=== PATIENT | female | born 1930 | race Caucasian/White ===

== ENCOUNTER 2017-01-04 20:59 | Inpatient (IN) | payer MEDICARE, OTHER, MEDICAID ==
[2017-01-04] MEDS ORDERED: Acetaminophen 500 MG Tab ONE (21:13)
[2017-01-04] MEDS ORDERED: Albuterol/Ipratropium 3.0-0.5 MG/3 ML Neb Soln ONE (21:13)
[2017-01-04] MEDS ORDERED: Albuterol/Ipratropium 3.0-0.5 MG/3 ML Neb Soln NEB ONE (21:18)
[2017-01-04] MEDS ORDERED: Acetaminophen 500 MG Tab PO ONE (21:19)
[2017-01-04 21:52] LABS: CHLORIDE,CL 96 mmol/L (98-115); SODIUM,NA 137 mmol/L (136-145)
--- NOTE | 2017-01-04 22:00 | EDM.PDOC ---
Addendum entered and electronically signed by Jens Marquez PA 01/05/17 09:03 : please use ER note as admission H and P Original Note: ED HISTORY OF PRESENT ILLNESS - General Chief Complaint: Respiratory Problem Stated Complaint: SHORTNESS OF BREATH Time Seen by Provider: 01/04/17 21:30 Source of Information: Reports: Patient, EMS, Family, residential records History Limitations: Reports: No limitations - History of Present Illness INITIAL COMMENTS - FREE TEXT/NARRATIVE: 86 YO WF presents to ER with fever, productive cough and shortness of breath which worsened today. Pt was hospitalized approximately 2 weeks ago with similar symptoms and treated for pneumonia and congestive heart failure. Pt was complaining of shortness of breath while at the half-way and was found to have SaO2 of 88% on her usual 3L of O2. Pt was given a duoneb treatment but O2 sat didn't improve prompting half-way to send patient to ER for further evaluation and treatment. Timing/Duration: Reports: Day(s): (1) Severity: mild Location, General: Reports: chest Improves with: Reports: Rest Worsens with: Reports: Breathing Context, General: Reports: Activity Associated Symptoms (General): Reports: cough w sputum, fever/chills, shortness of breath. Denies: chest pain - Related Data Allergies/ADRs: Allergies Allergy/AdvReac Type Severity Reaction Status Date / Time hydrocodone Allergy Severe Nausea and Verified 01/04/17 21:34 Vomiting levofloxacin [From Levaquin] Allergy Rash Verified 01/04/17 21:34 morphine Allergy Nausea and Verified 01/04/17 21:34 Vomiting Home Meds: Home Meds Docusate Sodium [Colace] 100 mg PO DAILY 11/20/14 [History] Lutein/Minerals/Vit A,C & E [Ocuvite] 1 tab PO BID 11/20/14 [History] Multivitamin [Daily Vitamin] 1 each PO DAILY 11/20/14 [History] Nitroglycerin [Nitrostat] 0.4 mg SL ASDIRECTED PRN 11/20/14 [History] Simvastatin 20 mg PO BEDTIME 11/20/14 [History] Warfarin Sodium 2 mg PO SUTUTHSA 11/20/14 [History] Furosemide [Lasix] 40 mg PO BID 11/04/15 [History] Aspirin [Adult Low Dose Aspirin EC] 81 mg PO DAILY 04/13/16 [History] Timolol Maleate 1 drop EYEBOTH DAILY 04/13/16 [History] Acetaminophen [Tylenol] 650 mg PO Q6H PRN 11/30/16 [History] Albuterol/Ipratropium [DuoNeb 3.0-0.5 MG/3 ML] 3 ml INH Q4H PRN 11/30/16 [ History] Calcium Carbonate [Tums] 2 tab PO Q6H PRN 11/30/16 [History] Docusate Sodium [Colace] 200 mg PO BEDTIME 11/30/16 [History] Polyethylene Glycol 3350 [MiraLAX] 1 pkt PO DAILY PRN 11/30/16 [History] Warfarin [Coumadin] 1 mg PO MOWEFR 11/30/16 [History] Past Medical History HEENT History: Reports: Glaucoma, Other (see below) 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 Cardiovascular History: Reports: Heart Failure, Pacemaker, SOB on exertion, Stents Respiratory History: Reports: SOB, Other (see below) Other Respiratory History: home 02 Gastrointestinal History: Reports: GERD Genitourinary History: Reports: None Musculoskeletal History: Reports: Arthritis, Gout Neurological History: Reports: Head trauma Psychiatric History: Reports: Anxiety - Infectious Disease History Infectious Disease History: Reports: Chicken pox, Measles, Mumps, Pertussis ( whooping cough), Rubella - Past Surgical History Head Surgeries/Procedures: Reports: None HEENT Surgical History: Reports: None Cardiovascular Surgical History: Reports: Coronary artery stent, Pacer Respiratory Surgical History: Reports: None GI Surgical History: Reports: Appendectomy, Cholecystectomy Female Surgical History: Reports: Hysterectomy Neurological Surgical History: Reports: None Musculoskeletal Surgical History: Reports: None Social & Family History - Family History Family Medical History: Noncontributory - Tobacco Use Smoking Status *Q: Never Smoker Second Hand Smoke Exposure: No - Caffeine Use Caffeine Use: Reports: Coffee, Soda - Alcohol Use Days Per Week of Alcohol Use: 0 - Recreational Drug Use Recreational Drug Use: No - Living Situation & Occupation Living situation: Reports: Occupation: retired ED ROS GENERAL - Review of Systems Review Of Systems: See Below Constitutional: Reports: fever, chills HEENT: Reports: No symptoms Respiratory: Reports: shortness of breath, cough, sputum. Denies: hemoptysis Cardiovascular: Reports: No symptoms Endocrine: Reports: no symptoms GI/Abdominal: Reports: No symptoms : Reports: no symptoms Musculoskeletal: Reports: no symptoms Skin: Reports: no symptoms Neurological: Reports: no symptoms Psychiatric: Reports: No symptoms Hematologic/Lymphatic: Reports: no symptoms Immunologic: Reports: no symptoms ED EXAM, GENERAL - Physical Exam Exam: See Below Exam Limited By: No limitations General Appearance: alert, WD/WN, no apparent distress Ears: normal external exam, normal canal, hearing grossly normal, normal TMs Nose: normal inspection, normal mucosa, no blood Throat/Mouth: Normal inspection, Normal lips, Normal teeth, Normal gums, Normal oropharynx, Normal voice, No airway compromise Head: atraumatic, normocephalic Neck: normal inspection, supple, non-tender, full range of motion Respiratory/Chest: no respiratory distress, no accessory muscle use, crackles. No: lungs clear Cardiovascular: normal peripheral pulses, no edema, no gallop, no murmur, no rub , irregularly irregular GI/Abdominal: normal bowel sounds, soft, non tender, no organomegaly, no distention, no abnormal bruit, no mass Back Exam: normal inspection, full range of motion, NT Extremities: normal inspection, normal range of motion, non-tender, normal capillary refill, no pedal edema Neurological: alert, oriented, CN II-XII intact, normal cognition, normal gait, normal reflexes, no motor/sensory deficits Psychiatric: normal affect, depressed mood Skin Exam: Warm, Dry, Intact, Normal color, No rash Lymphatic: no adenopathy Course - Vital Signs Last Recorded V/S: Last Vital Signs Temp 39.3 C H 01/04/17 21:26 Pulse 75 01/04/17 21:26 Resp 28 H 01/04/17 21:26 BP 132/59 L 01/04/17 21:26 Pulse Ox 89 L 01/04/17 21:26 - Orders/Labs/Meds Orders: Active Orders 24 hr Category Date Time Status RT Aerosol Therapy [RC] ASDIRECTED Care 01/04/17 21:19 Active Chest 2V [CR] Stat Exams 01/04/17 21:20 Taken CULTURE BLOOD [BC] Stat Lab 01/04/17 21:10 Received CULTURE BLOOD [BC] Stat Lab 01/04/17 21:45 Received URINALYSIS W/MICROSCOPIC [UA W/MICROSCOPIC] [URIN] Stat Lab 01/04/17 21:39 Ordered Blood Culture x2 Reflex Set [OM.PC] Stat Oth 01/04/17 21:20 Ordered Labs: Laboratory Tests 01/04/17 01/04/17 01/04/17 Range/Units 20:50 20:50 20:50 WBC 12.3 H (5.0-10.0) 10^3/uL RBC 3.13 L (3.80-5.50) 10^6/uL Hgb 10.3 L (12.0-16.0) g/dL Hct 30.8 L (37.0-47.0) % MCV 98.4 H (82.0-92.0) fL MCH 33.1 H (27.0-31.0) pg MCHC 33.6 (32.0-36.0) g/dL RDW 14.4 (11.5-14.5) % Plt Count 226 (150-300) 10^3/uL MPV 7.2 L (7.4-10.4) fL Neut % (Auto) 73.6 H (50.0-70.0) % Lymph % (Auto) 13.0 L (20.0-40.0) % [place] % (Auto) 12.3 H (2.0-8.0) % Eos % (Auto) 1.0 (1.0-3.0) % Baso % (Auto) 0.1 (0.0-1.0) % Neut # 9.1 H (2.5-7.0) 10^3/uL Lymph # 1.6 (1.0-4.0) 10^3/uL [place] # 1.5 H (0.1-0.8) 10^3/uL Eos # 0.1 (0.1-0.3) 10^3/uL Baso # 0.0 (0.0-0.1) 10^3/uL PT 39.9 H (8.9-11.4) SEC INR 3.7 H (0.9-1.1) APTT 49.7 H (20.8-31.2) SEC Sodium 137 (136-145) mmol/L Potassium 4.2 (3.3-5.3) mmol/L Chloride 96 L (98-115) mmol/L Carbon Dioxide 35.2 H (21.0-32.0) mmol/L BUN 18 (6-25) mg/dL Creatinine 0.71 (0.51-1.17) mg/dL Est Cr Clr Drug Dosing 44.15 mL/min Estimated GFR (MDRD) > 60 mL/min Glucose 154 H (70-110) mg/dL Calcium 8.2 L (8.7-10.3) mg/dL Total Bilirubin 0.7 (0.2-1.0) mg/dL AST 43 H (15-37) U/L ALT 19 (12-78) U/L Alkaline Phosphatase 96 (46-116) IU/L Troponin I 0.05 (0.00-0.070) ng/mL B-Natriuretic Peptide (0-100) pg/mL Total Protein 7.7 (6.4-8.2) g/dL Albumin 2.67 L (3.00-4.80) g/dL 01/04/17 Range/Units 20:50 WBC (5.0-10.0) 10^3/uL RBC (3.80-5.50) 10^6/uL Hgb (12.0-16.0) g/dL Hct (37.0-47.0) % MCV (82.0-92.0) fL MCH (27.0-31.0) pg MCHC (32.0-36.0) g/dL RDW (11.5-14.5) % Plt Count (150-300) 10^3/uL MPV (7.4-10.4) fL Neut % (Auto) (50.0-70.0) % Lymph % (Auto) (20.0-40.0) % [place] % (Auto) (2.0-8.0) % Eos % (Auto) (1.0-3.0) % Baso % (Auto) (0.0-1.0) % Neut # (2.5-7.0) 10^3/uL Lymph # (1.0-4.0) 10^3/uL [place] # (0.1-0.8) 10^3/uL Eos # (0.1-0.3) 10^3/uL Baso # (0.0-0.1) 10^3/uL PT (8.9-11.4) SEC INR (0.9-1.1) APTT (20.8-31.2) SEC Sodium (136-145) mmol/L Potassium (3.3-5.3) mmol/L Chloride (98-115) mmol/L Carbon Dioxide (21.0-32.0) mmol/L BUN (6-25) mg/dL Creatinine (0.51-1.17) mg/dL Est Cr Clr Drug Dosing mL/min Estimated GFR (MDRD) mL/min Glucose (70-110) mg/dL Calcium (8.7-10.3) mg/dL Total Bilirubin (0.2-1.0) mg/dL AST (15-37) U/L ALT (12-78) U/L Alkaline Phosphatase (46-116) IU/L Troponin I (0.00-0.070) ng/mL B-Natriuretic Peptide 668 H (0-100) pg/mL Total Protein (6.4-8.2) g/dL Albumin (3.00-4.80) g/dL Meds: Medications Discontinued Medications Generic Name Dose Route Start Last Admin Trade Name Freq PRN Reason Stop Dose Admin Acetaminophen Confirm 01/04/17 21:13 01/04/17 21:52 Tylenol Extra Strength Administered 01/04/17 21:14 Not Given Dose 1,000 mg .ROUTE .STK-MED ONE Acetaminophen 1,000 mg 01/04/17 21:19 01/04/17 21:20 Tylenol Extra Strength PO 01/04/17 21:20 1,000 mg ONETIME ONE Administration Albuterol/Ipratropium Confirm 01/04/17 21:13 01/04/17 21:52 Duoneb 3.0-0.5 Mg/3 Ml Administered 01/04/17 21:14 Not Given Dose 3 ml .ROUTE .STK-MED ONE Albuterol/Ipratropium 3 ml 01/04/17 21:18 01/04/17 21:20 Duoneb 3.0-0.5 Mg/3 Ml NEB 01/04/17 21:19 3 ml ONETIME ONE Administration - Radiology Interpretation Free Text/Narrative:: CXR- pneumonitis vs CHF exacerbation CT Results Date: 03/02/17 CT Results Time: 22:19 Departure - Departure Time of Disposition: 22:35 Disposition: Admitted As Inpatient 65 Condition: fair Clinical Impression: CHF exacerbation Qualifiers: Congestive heart failure type: unspecified congestive heart failure type Qualified Code(s): I50.9 - Heart failure, unspecified Pneumonia Qualifiers: Aspiration pneumonia type: unspecified Laterality: left Lung location: upper lobe of lung Forms: ED Department Discharge - My Orders Last 24 Hours: My Active Orders 01/04/17 21:10 CULTURE BLOOD [BC] Stat 01/04/17 21:19 RT Aerosol Therapy [RC] ASDIRECTED 01/04/17 21:20 Chest 2V [CR] Stat Blood Culture x2 Reflex Set [OM.PC] Stat 01/04/17 21:39 URINALYSIS W/MICROSCOPIC [UA W/MICROSCOPIC] [URIN] Stat 01/04/17 21:45 CULTURE BLOOD [BC] Stat - Assessment/Plan Last 24 Hours: My Active Orders 01/04/17 21:10 CULTURE BLOOD [BC] Stat 01/04/17 21:19 RT Aerosol Therapy [RC] ASDIRECTED 01/04/17 21:20 Chest 2V [CR] Stat Blood Culture x2 Reflex Set [OM.PC] Stat 01/04/17 21:39 URINALYSIS W/MICROSCOPIC [UA W/MICROSCOPIC] [URIN] Stat 01/04/17 21:45 CULTURE BLOOD [BC] Stat Assessment:: 1. hypoxemia 2. pneumonia 3. mild CHF 4. hyperglycemia Plan: 1. supplemental O2 2. lasix 20mg IV QD 3. rocephin 1g IV and Vancomycin 1g IV 4. supportive care 5. admit to my service for further management
[2017-01-04] MEDS ORDERED: Albuterol/Ipratropium 3.0-0.5 MG/3 ML Neb Soln NEB PRN (22:30)
[2017-01-04] MEDS: Furosemide 40 MG/4 ML VIAL IVPUSH SCH (22:59)
[2017-01-04] MEDS: cefTRIAXone 1 GM Vial IVPUSH SCH (23:00)
[2017-01-05 07:47] LABS: CHLORIDE,CL 99 mmol/L (98-115); SODIUM,NA 136 mmol/L (136-145)
[2017-01-05] MEDS ORDERED: EPINEPHrine 1:10,000 1 MG/10 ML Syringe IVPUSH PRN (08:24)
[2017-01-05] MEDS ORDERED: Lidocaine 2% 100 MG/5 ML Syringe IVPUSH PRN (08:24)
[2017-01-05] MEDS ORDERED: Nitroglycerin 0.4 MG Tab.SL SL PRN ×2 (08:24→08:47)
[2017-01-05] MEDS ORDERED: Atropine 0.1 MG/ML 10 ML Syringe IVPUSH PRN (08:24)
[2017-01-05] MEDS ORDERED: Calcium Carbonate 500 MG Tab.Chew PO PRN (08:47)
[2017-01-05] MEDS ORDERED: Acetaminophen 325 MG Tab PO PRN (08:47)
[2017-01-05] MEDS ORDERED: Albuterol/Ipratropium 3.0-0.5 MG/3 ML Neb Soln INH PRN (08:47)
[2017-01-05] MEDS: Sodium Chloride 0.9% 5 ML Syringe FLUSH PRN ×2 (08:58→22:28)
[2017-01-05] MEDS: Furosemide 40 MG/4 ML VIAL IVPUSH SCH (08:58)
[2017-01-05] MEDS ORDERED: Albuterol/Ipratropium 3.0-0.5 MG/3 ML Neb Soln NEB SCH (09:00)
[2017-01-05] MEDS ORDERED: Albuterol/Ipratropium 3.0-0.5 MG/3 ML Neb Soln INH SCH (09:00)
--- NOTE | 2017-01-05 09:03 | PCM.PN ---
- General Info Date of Service: 01/05/17 Admission Dx/Problem (Free Text): pneumonia/hypoemia/chf exacerbation Subjective Update: Pt hospitalized last night for pneumonia/hypoxia/mild chf exacerbation. Pt reports she's feeling better this am. Pt sitting up in chair and states her breathing is much better. Pt ate breakfast and has been up to bedside commode without difficulty. Functional Status: Reports: pain controlled, tolerating diet, ambulating, urinating Pain Score: 0 - Review of Systems General: Reports: no symptoms HEENT: Reports: no symptoms Pulmonary: Reports: no symptoms Cardiovascular: Reports: no symptoms Gastrointestinal: Reports: No symptoms Genitourinary: Reports: frequency Musculoskeletal: Reports: no symptoms Skin: Reports: no symptoms Neurological: Reports: no symptoms Psychiatric: Reports: no symptoms - Patient Data Vitals - most recent: Last Vital Signs Temp 36.2 C 01/05/17 06:45 Pulse 80 01/05/17 07:00 Resp 20 01/05/17 06:45 BP 95/68 01/05/17 06:45 Pulse Ox 99 01/05/17 07:00 Weight - most recent: 57.017 kg I&O - last 24 hours: Intake & Output 01/04/17 01/05/17 01/05/17 22:59 06:59 14:59 Intake Total 325 Output Total 400 Balance -75 Lab Results last 24 hrs: Laboratory Results - last 24 hr 01/05/17 01/05/17 Range/Units 07:00 07:00 WBC 8.0 (5.0-10.0) 10^3/uL RBC 2.89 L (3.80-5.50) 10^6/uL Hgb 9.3 L (12.0-16.0) g/dL Hct 28.2 L (37.0-47.0) % MCV 97.6 H (82.0-92.0) fL MCH 32.1 H (27.0-31.0) pg MCHC 32.9 (32.0-36.0) g/dL RDW 14.2 (11.5-14.5) % Plt Count 185 (150-300) 10^3/uL MPV 6.8 L (7.4-10.4) fL Neut % (Auto) 61.2 (50.0-70.0) % Lymph % (Auto) 21.7 (20.0-40.0) % [place] % (Auto) 14.4 H (2.0-8.0) % Eos % (Auto) 2.2 (1.0-3.0) % Baso % (Auto) 0.5 (0.0-1.0) % Neut # 4.9 (2.5-7.0) 10^3/uL Lymph # 1.7 (1.0-4.0) 10^3/uL [place] # 1.2 H (0.1-0.8) 10^3/uL Eos # 0.2 (0.1-0.3) 10^3/uL Baso # 0.0 (0.0-0.1) 10^3/uL Sodium 136 (136-145) mmol/L Potassium 3.3 (3.3-5.3) mmol/L Chloride 99 (98-115) mmol/L Carbon Dioxide 36.7 H (21.0-32.0) mmol/L BUN 16 (6-25) mg/dL Creatinine 0.68 (0.51-1.17) mg/dL Est Cr Clr Drug Dosing 46.10 mL/min Estimated GFR (MDRD) > 60 mL/min Glucose 99 (70-110) mg/dL Calcium 8.2 L (8.7-10.3) mg/dL B-Natriuretic Peptide 635 H (0-100) pg/mL Med Orders - Current: Current Medications Acetaminophen (Tylenol) 650 mg PO Q6H PRN PRN Reason: Pain Albuterol/Ipratropium (Duoneb 3.0-0.5 Mg/3 Ml) 3 ml NEB Q4H PRN PRN Reason: Shortness Of Breath/wheezing Last Admin: 01/05/17 07:00 Dose: 3 ml Albuterol/Ipratropium (Duoneb 3.0-0.5 Mg/3 Ml) 3 ml NEB Q4HRRT [place] Albuterol/Ipratropium (Duoneb 3.0-0.5 Mg/3 Ml) 3 ml NEB Q6HRRT [place] Albuterol/Ipratropium (Duoneb 3.0-0.5 Mg/3 Ml) 3 ml INH BID [place] Albuterol/Ipratropium (Duoneb 3.0-0.5 Mg/3 Ml) 3 ml INH Q4H PRN PRN Reason: Shortness of Breath Atropine Sulfate (Atropine 0.1 Mg/Ml) 0 mg IVPUSH ASDIRECTED PRN PRN Reason: Heart Calcium Carbonate/Glycine (Tums) mg PO Q6H PRN PRN Reason: Heartburn Ceftriaxone Sodium (Rocephin) 1 gm IVPUSH Q24H [facility] Last Admin: 01/04/17 23:00 Dose: 1 gm Cetirizine HCl (Zyrtec) 10 mg PO DAILY [facility] Docusate Sodium (Colace) 100 mg PO DAILY [facility] Epinephrine HCl (Epinephrine 1:10,000) 1 mg IVPUSH ASDIRECTED PRN PRN Reason: Heart Furosemide (Lasix) 20 mg IVPUSH DAILY [facility] Last Admin: 01/04/17 22:59 Dose: 20 mg Vancomycin HCl 1 gm/ Sodium (Chloride) 250 mls @ 167 mls/hr IV Q24H [facility] Last Admin: 01/04/17 23:02 Dose: 167 mls/hr Lidocaine HCl (Xylocaine 2%) 0 mg IVPUSH ASDIRECTED PRN PRN Reason: Heart Multivitamins/Minerals (Ocuvite) each PO BID [facility] Nitroglycerin (Nitrostat) 0.4 mg SL ASDIRECTED PRN PRN Reason: Heart Nitroglycerin (Nitrostat) 0.4 mg SL ASDIRECTED PRN PRN Reason: Chest Pain Non-Formulary Medication (Multivitamin [Daily Vitamin]) 1 each PO DAILY [facility] Non-Formulary Medication (Timolol Maleate) 1 drop EYEBOTH DAILY [facility] Polyethylene Glycol (Miralax) gm PO DAILY [facility] Simvastatin (Zocor) 20 mg PO BEDTIME [facility] Sodium Chloride (Syrex Flush) 5 ml FLUSH Q8HR PRN PRN Reason: Keep Vein Open Warfarin Sodium ([facility]) [facility] Dis[facility] Medications Acetaminophen (Tylenol Extra Strength) Confirm Administered Dose 1,000 mg .ROUTE .STK-MED ONE Stop: 01/04/17 21:14 Last Admin: 01/04/17 21:52 Dose: Not Given Acetaminophen (Tylenol Extra Strength) 1,000 mg PO ONETIME ONE Stop: 01/04/17 21:20 Last Admin: 01/04/17 21:20 Dose: 1,000 mg Albuterol/Ipratropium (Duoneb 3.0-0.5 Mg/3 Ml) Confirm Administered Dose 3 ml .ROUTE .STK-MED ONE Stop: 01/04/17 21:14 Last Admin: 01/04/17 21:52 Dose: Not Given Albuterol/Ipratropium (Duoneb 3.0-0.5 Mg/3 Ml) 3 ml NEB ONETIME ONE Stop: 01/04/17 21:19 Last Admin: 01/04/17 21:20 Dose: 3 ml - Problem List Review Problem List Initiated/Reviewed/Updated: Yes - My Orders Last 24 Hours: My Active Orders 01/04/17 08:03 CULTURE SPUTUM + SMEAR [RM] Stat 01/04/17 22:30 Patient Status [ADT] Routine Bedrest Bathroom Privileges [RC] ASDIRECTED Oxygen Therapy [RC] PRN VTE/DVT Education [RC] PER UNIT ROUTINE Vital Signs [RC] 0300,0700,1100,1500,1900,2300 Albuterol/Ipratropium [DuoNeb 3.0-0.5 MG/3 ML] 3 ml NEB Q4H PRN Sodium Chloride 0.9% [Syrex Flush] 5 ml FLUSH Q8HR PRN Peripheral IV Insertion Adult [OM.PC] Routine Resuscitation Status Routine 01/04/17 22:31 Cardiac Monitoring [RC] 0700,1100,1500,1900,2300,0300 Pulse Oximetry [RC] CONTINUOUS 01/04/17 22:32 Peripheral IV Care [RC] . DIRECTED RT Aerosol Therapy [RC] ASDIRECTED 01/04/17 22:45 Furosemide [Lasix] 20 mg IVPUSH DAILY Vancomycin 1 gm Sodium Chloride 0.9% [Normal Saline] 250 ml IV Q24H cefTRIAXone [Rocephin] 1 gm IVPUSH Q24H 01/05/17 08:24 Atropine [Atropine 0.1 MG/ML] 0 mg IVPUSH ASDIRECTED PRN EPINEPHrine [EPINEPHrine 1:10,000] 1 mg IVPUSH ASDIRECTED PRN Lidocaine 2% [Xylocaine 2%] 0 mg IVPUSH ASDIRECTED PRN Nitroglycerin [Nitrostat] 0.4 mg SL ASDIRECTED PRN 01/05/17 08:36 RT Aerosol Therapy [RC] ASDIRECTED 01/05/17 08:45 RT Aerosol Therapy [RC] ASDIRECTED 01/05/17 08:47 Acetaminophen [Tylenol] 650 mg PO Q6H PRN Albuterol/Ipratropium [DuoNeb 3.0-0.5 MG/3 ML] 3 ml INH Q4H PRN Calcium Carbonate [Tums] DOSE mg PO Q6H PRN Nitroglycerin [Nitrostat] 0.4 mg SL ASDIRECTED PRN 01/05/17 08:54 Potassium Chloride [Klor-Con M20] 40 meq PO ONETIME ONE 01/05/17 09:00 Albuterol/Ipratropium [DuoNeb 3.0-0.5 MG/3 ML] 3 ml INH BID Albuterol/Ipratropium [DuoNeb 3.0-0.5 MG/3 ML] 3 ml NEB Q4HRRT Cetirizine [ZyrTEC] 10 mg PO DAILY Docusate Sodium [Colace] 100 mg PO DAILY Lutein/Minerals/Vit A,C & E [Ocuvite] DOSE each PO BID Multivitamin [Daily Vitamin] 1 each PO DAILY Polyethylene Glycol 3350 [MiraLAX] DOSE gm PO DAILY Timolol Maleate 1 drop EYEBOTH DAILY 01/05/17 12:00 Albuterol/Ipratropium [DuoNeb 3.0-0.5 MG/3 ML] 3 ml NEB Q6HRRT 01/05/17 21:00 Simvastatin [Zocor] 20 mg PO BEDTIME 01/05/17 Breakfast 2 Gram Sodium Diet [DIET] 01/06/17 08:47 Warfarin [Coumadin] 2 mg PO [facility] - Assessment Assessment:: 1. pneumonia 2. hypoxemia 3. hypokalemia - Plan Plan:: 1. pneumonia- continue rocephin/vanco- pharmacy to dose 2. hypoxemia- improved. attempt to wean to O2 of 2L which is patients baseline; continue duonebs Q4 and PRN 3. hypokalemia- kdur 40meq PO once and recheck in am 4. elevated INR- hold coumadin for today and recheck in am 5. await blood culture results
[2017-01-05] MEDS: Albuterol/Ipratropium 3.0-0.5 MG/3 ML Neb Soln NEB SCH ×3 (11:26→22:29)
[2017-01-05] MEDS ORDERED: Potassium Chloride 20 MEQ Tab.ER PO ONE (12:00)
[2017-01-05] MEDS: Multivitamins with Minerals/Iron/Folic Acid/Lycopene Tab PO SCH (12:07)
[2017-01-05] MEDS: Timolol Maleate 0.5% Ophth Soln 15 ML Bottle EYEBOTH SCH (12:08)
[2017-01-05] MEDS: Docusate Sodium 100 MG Cap PO SCH (12:08)
[2017-01-05] MEDS: Cetirizine 10 MG Tab PO SCH (12:08)
[2017-01-05] MEDS: Polyethylene Glycol 3350 Powder 17 GM Packet PO SCH (12:08)
[2017-01-05] MEDS: Lutein/Minerals/Vitamins A, C & E Tab PO SCH ×2 (12:14→20:21)
[2017-01-05] MEDS ORDERED: Simvastatin 20 MG Tab PO SCH (21:00)
[2017-01-05] MEDS: cefTRIAXone 1 GM Vial IVPUSH SCH (22:21)
[2017-01-06] MEDS: Albuterol/Ipratropium 3.0-0.5 MG/3 ML Neb Soln NEB SCH ×2 (05:16→11:06)
[2017-01-06 05:24] VITALS: BP 101/59
[2017-01-06 07:46] LABS: CHLORIDE,CL 103 mmol/L (98-115); SODIUM,NA 141 mmol/L (136-145)
[2017-01-06] MEDS: Furosemide 40 MG/4 ML VIAL IVPUSH SCH (08:24)
[2017-01-06] MEDS: Sodium Chloride 0.9% 5 ML Syringe FLUSH PRN (08:24)
[2017-01-06] MEDS: Multivitamins with Minerals/Iron/Folic Acid/Lycopene Tab PO SCH (08:27)
[2017-01-06] MEDS: Polyethylene Glycol 3350 Powder 17 GM Packet PO SCH (08:27)
[2017-01-06] MEDS: Lutein/Minerals/Vitamins A, C & E Tab PO SCH (08:27)
[2017-01-06] MEDS: Timolol Maleate 0.5% Ophth Soln 15 ML Bottle EYEBOTH SCH (08:28)
[2017-01-06] MEDS: Cetirizine 10 MG Tab PO SCH (08:28)
[2017-01-06] MEDS: Docusate Sodium 100 MG Cap PO SCH (08:28)
--- NOTE | 2017-01-06 10:23 | PCM.DCSUM1 ---
Addendum entered and electronically signed by Jens Marquez PA 01/06/17 21:22 : Discharge Summary - Hospital Course Free Text/Narrative:: Pt returned to ER at 2100 due to fever and shortness of breath while at the [facility]. Please use discharge summery as admission H and P Brief History: 57 YO WF presented to ER with hypoxia. Pt was found to have a left upper lobe infiltrate consistant with pneumonia. Pt also had underlying CHF. Pt is O2 dependent and is usually on 2L of oxygen daily. Pt was weaned from 3L while in the hospital back to 2L yesterday and tolerated well. Pt was given IV rocephin/vancomycin, duoneb treatment Q4 hours and lasix 20mg IV x 2 doses and has improved significantly. Pt was able to shower this am without difficulty and states she's feeling much better. Pt had her coumadin held x 1 day due to elevated INR-3.7 and is currently at 3.0. Coumadin will be restarted today. Pt had KCL 40MEQ replaced due to hypokalemia and today K- 3.7. Pt will be discharged on omnicef 300mg PO BID x 10 days and continue duoneb treatments Q6 hours and PRN. All her home medications will be restarted. Pt will return to [place] today for further management. - Discharge Data Discharge Date: 01/06/17 Discharge Disposition: DC/Tfer to [facility] 62 Condition: Good - Discharge Diagnosis/Problem(s) (1) CHF exacerbation SNOMED Code(s): 09799458 ICD Code: I50.9 - HEART FAILURE, UNSPECIFIED Status: Resolved Qualifiers: Congestive heart failure type: unspecified congestive heart failure type Qualified Code(s): I50.9 - Heart failure, unspecified (2) Pneumonia SNOMED Code(s): 064305261 ICD Code: J18.9 - PNEUMONIA, UNSPECIFIED ORGANISM Status: Acute Qualifiers: Aspiration pneumonia type: unspecified Laterality: left Lung location: upper lobe of lung (3) Afib, Atrial fibrillation SNOMED Code(s): 44678422 ICD Code: I48.91 - UNSPECIFIED ATRIAL FIBRILLATION Status: Chronic (4) Chronic anemia SNOMED Code(s): 377423019 ICD Code: D64.9 - ANEMIA, UNSPECIFIED Status: Chronic - Patient Instructions Diet: Heart Healthy Diet, Low Sodium Fluid Restriction: 1500 mL Activity: As Tolerated Showering/Bathing: May Shower Notify Provider of: Fever - Discharge Plan Prescriptions/Med Rec: Cefdinir [Omnicef] 300 mg PO BID #20 cap Home Medications: Home Meds Docusate Sodium [Colace] 100 mg PO DAILY 11/20/14 [History] Lutein/Minerals/Vit A,C & E [Ocuvite] 1 tab PO BID 11/20/14 [History] Multivitamin [Daily Vitamin] 1 each PO DAILY 11/20/14 [History] Nitroglycerin [Nitrostat] 0.4 mg SL ASDIRECTED PRN 11/20/14 [History] Simvastatin 20 mg PO BEDTIME 11/20/14 [History] Warfarin Sodium 2 mg PO SUTUTHSA@1800 11/20/14 [History] Furosemide [Lasix] 40 mg PO BID 11/04/15 [History] Aspirin [Adult Low Dose Aspirin EC] 81 mg PO DAILY 04/13/16 [History] Timolol Maleate 1 drop EYEBOTH DAILY 04/13/16 [History] Acetaminophen [Tylenol] 650 mg PO Q6H PRN 11/30/16 [History] Albuterol/Ipratropium [DuoNeb 3.0-0.5 MG/3 ML] 3 ml INH Q4H PRN 11/30/16 [ History] Calcium Carbonate [Tums] 1,000 mg PO Q6H PRN 11/30/16 [History] Polyethylene Glycol 3350 [MiraLAX] 1 pkt PO DAILY 11/30/16 [History] Warfarin [Coumadin] 1 mg PO MOWEFR@1800 11/30/16 [History] Albuterol/Ipratropium [DuoNeb 3.0-0.5 MG/3 ML] 3 ml INH BID 01/05/17 [History] Cetirizine [ZyrTEC] 10 mg PO DAILY 01/05/17 [History] Dextromethorphan/guaiFENesin [Robitussin DM] 5 ml PO Q12H PRN 01/05/17 [History] Cefdinir [Omnicef] 300 mg PO BID #20 cap 01/06/17 [Rx] Patient Handouts: Hypoxemia, Warfarin Coagulopathy, Heart Failure, Community- Acquired Pneumonia, Adult Forms: ED Department Discharge Referrals: Wayside-Ravi,Azul A, MD [Primary Care Provider] - - Patient Data Vitals - Most Recent: Last Vital Signs Temp 36.7 C 01/06/17 05:24 Pulse 76 01/06/17 05:24 Resp 20 01/06/17 05:24 BP 101/59 L 01/06/17 05:24 Pulse Ox 94 L 01/06/17 10:00 Weight - Most Recent: 57.408 kg I&O - Last 24 hours: Intake & Output 01/06/17 01/06/17 01/06/17 06:59 14:59 22:59 Intake Total 50 Balance 50 Lab Results - Last 24 hrs: Laboratory Results - last 24 hr 01/06/17 01/06/17 01/06/17 Range/Units 07:05 07:05 07:05 WBC 7.5 (5.0-10.0) 10^3/uL RBC 2.79 L (3.80-5.50) 10^6/uL Hgb 9.1 L (12.0-16.0) g/dL Hct 27.4 L (37.0-47.0) % MCV 98.1 H (82.0-92.0) fL MCH 32.6 H (27.0-31.0) pg MCHC 33.2 (32.0-36.0) g/dL RDW 14.5 (11.5-14.5) % Plt Count 181 (150-300) 10^3/uL MPV 6.9 L (7.4-10.4) fL Neut % (Auto) 59.1 (50.0-70.0) % Lymph % (Auto) 19.9 L (20.0-40.0) % [place] % (Auto) 15.9 H (2.0-8.0) % Eos % (Auto) 4.3 H (1.0-3.0) % Baso % (Auto) 0.8 (0.0-1.0) % Neut # 4.4 (2.5-7.0) 10^3/uL Lymph # 1.5 (1.0-4.0) 10^3/uL [place] # 1.2 H (0.1-0.8) 10^3/uL Eos # 0.3 (0.1-0.3) 10^3/uL Baso # 0.1 (0.0-0.1) 10^3/uL PT (8.9-11.4) SEC INR (0.9-1.1) Sodium 141 (136-145) mmol/L Potassium 4.4 (3.3-5.3) mmol/L Chloride 103 (98-115) mmol/L Carbon Dioxide 34.0 H (21.0-32.0) mmol/L BUN 16 (6-25) mg/dL Creatinine 0.66 (0.51-1.17) mg/dL Est Cr Clr Drug Dosing 47.50 mL/min Estimated GFR (MDRD) > 60 mL/min Glucose 84 (70-110) mg/dL Calcium 8.4 L (8.7-10.3) mg/dL B-Natriuretic Peptide 525 H (0-100) pg/mL 01/06/17 Range/Units 07:05 WBC (5.0-10.0) 10^3/uL RBC (3.80-5.50) 10^6/uL Hgb (12.0-16.0) g/dL Hct (37.0-47.0) % MCV (82.0-92.0) fL MCH (27.0-31.0) pg MCHC (32.0-36.0) g/dL RDW (11.5-14.5) % Plt Count (150-300) 10^3/uL MPV (7.4-10.4) fL Neut % (Auto) (50.0-70.0) % Lymph % (Auto) (20.0-40.0) % [place] % (Auto) (2.0-8.0) % Eos % (Auto) (1.0-3.0) % Baso % (Auto) (0.0-1.0) % Neut # (2.5-7.0) 10^3/uL Lymph # (1.0-4.0) 10^3/uL [place] # (0.1-0.8) 10^3/uL Eos # (0.1-0.3) 10^3/uL Baso # (0.0-0.1) 10^3/uL PT 3.2 L (8.9-11.4) SEC INR 3.0 H (0.9-1.1) Sodium (136-145) mmol/L Potassium (3.3-5.3) mmol/L Chloride (98-115) mmol/L Carbon Dioxide (21.0-32.0) mmol/L BUN (6-25) mg/dL Creatinine (0.51-1.17) mg/dL Est Cr Clr Drug Dosing mL/min Estimated GFR (MDRD) mL/min Glucose (70-110) mg/dL Calcium (8.7-10.3) mg/dL B-Natriuretic Peptide (0-100) pg/mL Med Orders - Current: Current Medications Discontinued Medications Acetaminophen (Tylenol Extra Strength) Confirm Administered Dose 1,000 mg .ROUTE .STK-MED ONE Stop: 01/04/17 21:14 Last Admin: 01/04/17 21:52 Dose: Not Given Acetaminophen (Tylenol Extra Strength) 1,000 mg PO ONETIME ONE Stop: 01/04/17 21:20 Last Admin: 01/04/17 21:20 Dose: 1,000 mg Acetaminophen (Tylenol) 650 mg PO Q6H PRN PRN Reason: Pain Last Admin: 01/05/17 21:22 Dose: 650 mg Albuterol/Ipratropium (Duoneb 3.0-0.5 Mg/3 Ml) Confirm Administered Dose 3 ml .ROUTE .STK-MED ONE Stop: 01/04/17 21:14 Last Admin: 01/04/17 21:52 Dose: Not Given Albuterol/Ipratropium (Duoneb 3.0-0.5 Mg/3 Ml) 3 ml NEB ONETIME ONE Stop: 01/04/17 21:19 Last Admin: 01/04/17 21:20 Dose: 3 ml Albuterol/Ipratropium (Duoneb 3.0-0.5 Mg/3 Ml) 3 ml NEB Q4H PRN PRN Reason: Shortness Of Breath/wheezing Last Admin: 01/05/17 07:00 Dose: 3 ml Albuterol/Ipratropium (Duoneb 3.0-0.5 Mg/3 Ml) 3 ml NEB Q4HRRT [place] Last Admin: 01/05/17 10:48 Dose: Not Given Albuterol/Ipratropium (Duoneb 3.0-0.5 Mg/3 Ml) 3 ml NEB Q6HRRT [facility] Last Admin: 01/06/17 11:06 Dose: 3 ml Atropine Sulfate (Atropine 0.1 Mg/Ml) 0 mg IVPUSH ASDIRECTED PRN PRN Reason: Heart Calcium Carbonate/Glycine (Tums) 1,000 mg PO Q6H PRN PRN Reason: Heartburn Ceftriaxone Sodium (Rocephin) 1 gm IVPUSH Q24H [facility] Last Admin: 01/05/17 22:21 Dose: 1 gm Cetirizine HCl (Zyrtec) 10 mg PO DAILY [facility] Last Admin: 01/06/17 08:28 Dose: 10 mg Docusate Sodium (Colace) 100 mg PO DAILY [facility] Last Admin: 01/06/17 08:28 Dose: 100 mg Epinephrine HCl (Epinephrine 1:10,000) 1 mg IVPUSH ASDIRECTED PRN PRN Reason: Heart Furosemide (Lasix) 20 mg IVPUSH DAILY [facility] Last Admin: 01/06/17 08:24 Dose: 20 mg Vancomycin HCl 1 gm/ Sodium (Chloride) 250 mls @ 167 mls/hr IV Q24H [facility] Last Admin: 01/04/17 23:02 Dose: 167 mls/hr Vancomycin HCl 1 gm/ Sodium (Chloride) 270 mls @ 180 mls/hr IV Q24H [facility] Last Admin: 01/05/17 16:04 Dose: 180 mls/hr Lidocaine HCl (Xylocaine 2%) 0 mg IVPUSH ASDIRECTED PRN PRN Reason: Heart Multivitamins/Minerals (Centrum) 1 tab PO DAILY [facility] Last Admin: 01/06/17 08:27 Dose: 1 tab Multivitamins/Minerals (Ocuvite) 1 each PO BID [facility] Last Admin: 01/06/17 08:27 Dose: 1 each Nitroglycerin (Nitrostat) 0.4 mg SL ASDIRECTED PRN PRN Reason: Chest Pain Polyethylene Glycol (Miralax) 17 gm PO DAILY [facility] Last Admin: 01/06/17 08:27 Dose: 17 gm Potassium Chloride (Klor-Con M20) 40 meq PO ONETIME ONE Stop: 01/05/17 12:01 Last Admin: 01/05/17 12:09 Dose: 40 meq Simvastatin (Zocor) 20 mg PO BEDTIME [facility] Last Admin: 01/05/17 20:21 Dose: 20 mg Sodium Chloride (Syrex Flush) 5 ml FLUSH Q8HR PRN PRN Reason: Keep Vein Open Last Admin: 01/06/17 08:24 Dose: 5 ml Timolol Maleate (Timoptic 0.5% Ophth Soln) 0 ml EYEBOTH DAILY [facility] Last Admin: 01/06/17 08:28 Dose: 1 drop Vancomycin HCl (Pharmacy To Dose - Vancomycin) 0 dose .XX ASDIRECTED [facility] Warfarin Sodium (Coumadin) 2 mg PO SuTuThSa@1800 [facility] Warfarin Sodium (Coumadin) 1 mg PO MOWEFR@1800 [facility] Addendum entered and electronically signed by Jens Marquez PA 01/06/17 10:53 : Discharge Summary - Hospital Course Brief History: 57 YO WF presented to ER with hypoxia. Pt was found to have a left upper lobe infiltrate consistant with pneumonia. Pt also had underlying CHF. Pt is O2 dependent and is usually on 2L of oxygen daily. Pt was weaned from 3L while in the hospital back to 2L yesterday and tolerated well. Pt was given IV rocephin/vancomycin, duoneb treatment Q4 hours and lasix 20mg IV x 2 doses and has improved significantly. Pt was able to shower this am without difficulty and states she's feeling much better. Pt had her coumadin held x 1 day due to elevated INR-3.7 and is currently at 3.0. Coumadin will be restarted today. Pt had KCL 40MEQ replaced due to hypokalemia and today K- 3.7. Pt will be discharged on omnicef 300mg PO BID x 10 days and continue duoneb treatments Q6 hours and PRN. All her home medications will be restarted. Pt will return to [place] today for further management. - Discharge Data Discharge Date: 01/06/17 Discharge Disposition: Home, Self-Care 01 Condition: Good - Discharge Diagnosis/Problem(s) (1) CHF exacerbation SNOMED Code(s): 70153037 ICD Code: I50.9 - HEART FAILURE, UNSPECIFIED Status: Resolved Current Visit: Yes Qualifiers: Congestive heart failure type: unspecified congestive heart failure type Qualified Code(s): I50.9 - Heart failure, unspecified (2) Pneumonia SNOMED Code(s): 301390926 ICD Code: J18.9 - PNEUMONIA, UNSPECIFIED ORGANISM Status: Acute Current Visit: Yes Qualifiers: Aspiration pneumonia type: unspecified Laterality: left Lung location: upper lobe of lung (3) Afib, Atrial fibrillation SNOMED Code(s): 15951713 ICD Code: I48.91 - UNSPECIFIED ATRIAL FIBRILLATION Status: Chronic Current Visit: No (4) Chronic anemia SNOMED Code(s): 723400745 ICD Code: D64.9 - ANEMIA, UNSPECIFIED Status: Chronic Current Visit: No - Patient Instructions Diet: Heart Healthy Diet, Low Sodium Fluid Restriction: 1500 mL Activity: As Tolerated Showering/Bathing: March Shower Notify Provider of: Fever - Discharge Plan Prescriptions/Med Rec: Cefdinir [Omnicef] 300 mg PO BID #20 cap Home Medications: Home Meds Docusate Sodium [Colace] 100 mg PO DAILY 11/20/14 [History] Lutein/Minerals/Vit A,C & E [Ocuvite] 1 tab PO BID 11/20/14 [History] Multivitamin [Daily Vitamin] 1 each PO DAILY 11/20/14 [History] Nitroglycerin [Nitrostat] 0.4 mg SL ASDIRECTED PRN 11/20/14 [History] Simvastatin 20 mg PO BEDTIME 11/20/14 [History] Warfarin Sodium 2 mg PO SUTUTHSA@1800 11/20/14 [History] Furosemide [Lasix] 40 mg PO BID 11/04/15 [History] Aspirin [Adult Low Dose Aspirin EC] 81 mg PO DAILY 04/13/16 [History] Timolol Maleate 1 drop EYEBOTH DAILY 04/13/16 [History] Acetaminophen [Tylenol] 650 mg PO Q6H PRN 11/30/16 [History] Albuterol/Ipratropium [DuoNeb 3.0-0.5 MG/3 ML] 3 ml INH Q4H PRN 11/30/16 [ History] Calcium Carbonate [Tums] 1,000 mg PO Q6H PRN 11/30/16 [History] Polyethylene Glycol 3350 [MiraLAX] 1 pkt PO DAILY 11/30/16 [History] Warfarin [Coumadin] 1 mg PO MOWEFR@1800 11/30/16 [History] Albuterol/Ipratropium [DuoNeb 3.0-0.5 MG/3 ML] 3 ml INH BID 01/05/17 [History] Cetirizine [ZyrTEC] 10 mg PO DAILY 01/05/17 [History] Dextromethorphan/guaiFENesin [Robitussin DM] 5 ml PO Q12H PRN 01/05/17 [History] Cefdinir [Omnicef] 300 mg PO BID #20 cap 01/06/17 [Rx] Patient Handouts: Hypoxemia, Warfarin Coagulopathy, Heart Failure, Community- Acquired Pneumonia, Adult Forms: ED Department Discharge Referrals: Azul Boggs MD [Primary Care Provider] - - General Info Date of Service: 01/06/17 Functional Status: Reports: pain controlled - Review of Systems General: Reports: no symptoms HEENT: Reports: no symptoms Pulmonary: Reports: cough Cardiovascular: Reports: no symptoms Gastrointestinal: Reports: No symptoms Genitourinary: Reports: no symptoms Musculoskeletal: Reports: no symptoms Skin: Reports: no symptoms Neurological: Reports: no symptoms Psychiatric: Reports: no symptoms - Patient Data Vitals - Most Recent: Last Vital Signs Temp 36.7 C 01/06/17 05:24 Pulse 76 01/06/17 05:24 Resp 20 01/06/17 05:24 BP 101/59 L 01/06/17 05:24 Pulse Ox 94 L 01/06/17 10:00 Weight - Most Recent: 57.408 kg I&O - Last 24 hours: Intake & Output 01/05/17 01/06/17 01/06/17 22:59 06:59 14:59 Intake Total 860 50 Balance 860 50 Lab Results - Last 24 hrs: Laboratory Results - last 24 hr 01/06/17 01/06/17 01/06/17 Range/Units 07:05 07:05 07:05 WBC 7.5 (5.0-10.0) 10^3/uL RBC 2.79 L (3.80-5.50) 10^6/uL Hgb 9.1 L (12.0-16.0) g/dL Hct 27.4 L (37.0-47.0) % MCV 98.1 H (82.0-92.0) fL MCH 32.6 H (27.0-31.0) pg MCHC 33.2 (32.0-36.0) g/dL RDW 14.5 (11.5-14.5) % Plt Count 181 (150-300) 10^3/uL MPV 6.9 L (7.4-10.4) fL Neut % (Auto) 59.1 (50.0-70.0) % Lymph % (Auto) 19.9 L (20.0-40.0) % [place] % (Auto) 15.9 H (2.0-8.0) % Eos % (Auto) 4.3 H (1.0-3.0) % Baso % (Auto) 0.8 (0.0-1.0) % Neut # 4.4 (2.5-7.0) 10^3/uL Lymph # 1.5 (1.0-4.0) 10^3/uL [place] # 1.2 H (0.1-0.8) 10^3/uL Eos # 0.3 (0.1-0.3) 10^3/uL Baso # 0.1 (0.0-0.1) 10^3/uL PT (8.9-11.4) SEC INR (0.9-1.1) Sodium 141 (136-145) mmol/L Potassium 4.4 (3.3-5.3) mmol/L Chloride 103 (98-115) mmol/L Carbon Dioxide 34.0 H (21.0-32.0) mmol/L BUN 16 (6-25) mg/dL Creatinine 0.66 (0.51-1.17) mg/dL Est Cr Clr Drug Dosing 47.50 mL/min Estimated GFR (MDRD) > 60 mL/min Glucose 84 (70-110) mg/dL Calcium 8.4 L (8.7-10.3) mg/dL B-Natriuretic Peptide 525 H (0-100) pg/mL 01/06/17 Range/Units 07:05 WBC (5.0-10.0) 10^3/uL RBC (3.80-5.50) 10^6/uL Hgb (12.0-16.0) g/dL Hct (37.0-47.0) % MCV (82.0-92.0) fL MCH (27.0-31.0) pg MCHC (32.0-36.0) g/dL RDW (11.5-14.5) % Plt Count (150-300) 10^3/uL MPV (7.4-10.4) fL Neut % (Auto) (50.0-70.0) % Lymph % (Auto) (20.0-40.0) % [place] % (Auto) (2.0-8.0) % Eos % (Auto) (1.0-3.0) % Baso % (Auto) (0.0-1.0) % Neut # (2.5-7.0) 10^3/uL Lymph # (1.0-4.0) 10^3/uL [place] # (0.1-0.8) 10^3/uL Eos # (0.1-0.3) 10^3/uL Baso # (0.0-0.1) 10^3/uL PT 3.2 L (8.9-11.4) SEC INR 3.0 H (0.9-1.1) Sodium (136-145) mmol/L Potassium (3.3-5.3) mmol/L Chloride (98-115) mmol/L Carbon Dioxide (21.0-32.0) mmol/L BUN (6-25) mg/dL Creatinine (0.51-1.17) mg/dL Est Cr Clr Drug Dosing mL/min Estimated GFR (MDRD) mL/min Glucose (70-110) mg/dL Calcium (8.7-10.3) mg/dL B-Natriuretic Peptide (0-100) pg/mL Med Orders - Current: Current Medications Acetaminophen (Tylenol) 650 mg PO Q6H PRN PRN Reason: Pain Last Admin: 01/05/17 21:22 Dose: 650 mg Albuterol/Ipratropium (Duoneb 3.0-0.5 Mg/3 Ml) 3 ml NEB Q4H PRN PRN Reason: Shortness Of Breath/wheezing Last Admin: 01/05/17 07:00 Dose: 3 ml Albuterol/Ipratropium (Duoneb 3.0-0.5 Mg/3 Ml) 3 ml NEB Q6HRRT [place] Last Admin: 01/06/17 05:16 Dose: 3 ml Atropine Sulfate (Atropine 0.1 Mg/Ml) 0 mg IVPUSH ASDIRECTED PRN PRN Reason: Heart Calcium Carbonate/Glycine (Tums) 1,000 mg PO Q6H PRN PRN Reason: Heartburn Ceftriaxone Sodium (Rocephin) 1 gm IVPUSH Q24H [facility] Last Admin: 01/05/17 22:21 Dose: 1 gm Cetirizine HCl (Zyrtec) 10 mg PO DAILY [facility] Last Admin: 01/06/17 08:28 Dose: 10 mg Docusate Sodium (Colace) 100 mg PO DAILY [facility] Last Admin: 01/06/17 08:28 Dose: 100 mg Epinephrine HCl (Epinephrine 1:10,000) 1 mg IVPUSH ASDIRECTED PRN PRN Reason: Heart Furosemide (Lasix) 20 mg IVPUSH DAILY [facility] Last Admin: 01/06/17 08:24 Dose: 20 mg Vancomycin HCl 1 gm/ Sodium (Chloride) 270 mls @ 180 mls/hr IV Q24H [facility] Last Admin: 01/05/17 16:04 Dose: 180 mls/hr Lidocaine HCl (Xylocaine 2%) 0 mg IVPUSH ASDIRECTED PRN PRN Reason: Heart Multivitamins/Minerals (Centrum) 1 tab PO DAILY [facility] Last Admin: 01/06/17 08:27 Dose: 1 tab Multivitamins/Minerals (Ocuvite) 1 each PO BID [facility] Last Admin: 01/06/17 08:27 Dose: 1 each Nitroglycerin (Nitrostat) 0.4 mg SL ASDIRECTED PRN PRN Reason: Chest Pain Polyethylene Glycol (Miralax) 17 gm PO DAILY [facility] Last Admin: 01/06/17 08:27 Dose: 17 gm Simvastatin (Zocor) 20 mg PO BEDTIME [facility] Last Admin: 01/05/17 20:21 Dose: 20 mg Sodium Chloride (Syrex Flush) 5 ml FLUSH Q8HR PRN PRN Reason: Keep Vein Open Last Admin: 01/06/17 08:24 Dose: 5 ml Timolol Maleate (Timoptic 0.5% Ophth Soln) 0 ml EYEBOTH DAILY [facility] Last Admin: 01/06/17 08:28 Dose: 1 drop Vancomycin HCl (Pharmacy To Dose - Vancomycin) 0 dose .XX ASDIRECTED [facility] Warfarin Sodium (Coumadin) 2 mg PO SuTuThSa@1800 [facility] Warfarin Sodium (Coumadin) 1 mg PO MOWEFR@1800 [facility] Discontinued Medications Acetaminophen (Tylenol Extra Strength) Confirm Administered Dose 1,000 mg .ROUTE .STK-MED ONE Stop: 01/04/17 21:14 Last Admin: 01/04/17 21:52 Dose: Not Given Acetaminophen (Tylenol Extra Strength) 1,000 mg PO ONETIME ONE Stop: 01/04/17 21:20 Last Admin: 01/04/17 21:20 Dose: 1,000 mg Albuterol/Ipratropium (Duoneb 3.0-0.5 Mg/3 Ml) Confirm Administered Dose 3 ml .ROUTE .STK-MED ONE Stop: 01/04/17 21:14 Last Admin: 01/04/17 21:52 Dose: Not Given Albuterol/Ipratropium (Duoneb 3.0-0.5 Mg/3 Ml) 3 ml NEB ONETIME ONE Stop: 01/04/17 21:19 Last Admin: 01/04/17 21:20 Dose: 3 ml Albuterol/Ipratropium (Duoneb 3.0-0.5 Mg/3 Ml) 3 ml NEB Q4HRRT [facility] Last Admin: 01/05/17 10:48 Dose: Not Given Vancomycin HCl 1 gm/ Sodium (Chloride) 250 mls @ 167 mls/hr IV Q24H [facility] Last Admin: 01/04/17 23:02 Dose: 167 mls/hr Potassium Chloride (Klor-Con M20) 40 meq PO ONETIME ONE Stop: 01/05/17 12:01 Last Admin: 01/05/17 12:09 Dose: 40 meq - Exam Quality Assessment: Reports: supplemental oxygen General: Reports: alert, oriented HEENT: Reports: Pupils equal, Pupils reactive, EOMI, Mucous membr. moist/pink Neck: Reports: supple Lungs: Reports: Clear to auscultation, Normal respiratory effort Cardiovascular: Reports: regular rate, regular rhythm Abdomen: Reports: bowel sounds present, soft, no tenderness, no distension Back Exam: Reports: normal inspection, full range of motion Extremities: Reports: no edema, normal pulses Skin: Reports: warm, dry, intact Neurological: Reports: no new focal deficit Psy/Mental Status: Reports: alert, normal affect, normal mood Original Note: Discharge Summary - Hospital Course HPI Initial Comments: 1. hypoxemia 2. left upper lobe pneumonia 3. CHF exacerbation 4. coagulopathy Brief History: 57 YO WF presented to ER with hypoxia. Pt was found to have a left upper lobe infiltrate consistant with pneumonia. Pt also had underlying CHF. Pt is O2 dependent and is usually on 2L of oxygen daily. Pt was weaned from 3L while in the hospital back to 2L yesterday and tolerated well. Pt was given IV rocephin/vancomycin, duoneb treatment Q4 hours and lasix 20mg IV x 2 doses and has improved significantly. Pt was able to shower this am without difficulty and states she's feeling much better. Pt had her coumadin held x 1 day due to elevated INR-3.7 and is currently at 3.0. Coumadin will be restarted today. Pt had KCL 40MEQ replaced due to hypokalemia and today K- 3.7. Pt will be discharged on omnicef 300mg PO BID x 10 days and continue duoneb treatments Q6 hours and PRN. All her home medications will be restarted. Pt will return to [place] today for further management. - Discharge Data Discharge Date: 01/06/17 Discharge Disposition: Home, Self-Care 01 Condition: Good - Discharge Diagnosis/Problem(s) (1) CHF exacerbation SNOMED Code(s): 36069033 ICD Code: I50.9 - HEART FAILURE, UNSPECIFIED Status: Resolved Current Visit: Yes Qualifiers: Congestive heart failure type: unspecified congestive heart failure type Qualified Code(s): I50.9 - Heart failure, unspecified (2) Pneumonia SNOMED Code(s): 357211984 ICD Code: J18.9 - PNEUMONIA, UNSPECIFIED ORGANISM Status: Acute Current Visit: Yes Qualifiers: Aspiration pneumonia type: unspecified Laterality: left Lung location: upper lobe of lung (3) Afib, Atrial fibrillation SNOMED Code(s): 86289933 ICD Code: I48.91 - UNSPECIFIED ATRIAL FIBRILLATION Status: Chronic Current Visit: No (4) Chronic anemia SNOMED Code(s): 125177118 ICD Code: D64.9 - ANEMIA, UNSPECIFIED Status: Chronic Current Visit: No - Patient Instructions Diet: Heart Healthy Diet, Low Sodium Fluid Restriction: 1500 mL Activity: As Tolerated Showering/Bathing: March Shower Notify Provider of: Fever - Discharge Plan Prescriptions/Med Rec: Cefdinir [Omnicef] 300 mg PO BID #20 cap Home Medications: Home Meds Docusate Sodium [Colace] 100 mg PO DAILY 11/20/14 [History] Lutein/Minerals/Vit A,C & E [Ocuvite] 1 tab PO BID 11/20/14 [History] Multivitamin [Daily Vitamin] 1 each PO DAILY 11/20/14 [History] Nitroglycerin [Nitrostat] 0.4 mg SL ASDIRECTED PRN 11/20/14 [History] Simvastatin 20 mg PO BEDTIME 11/20/14 [History] Warfarin Sodium 2 mg PO SUTUTHSA@1800 11/20/14 [History] Furosemide [Lasix] 40 mg PO BID 11/04/15 [History] Aspirin [Adult Low Dose Aspirin EC] 81 mg PO DAILY 04/13/16 [History] Timolol Maleate 1 drop EYEBOTH DAILY 04/13/16 [History] Acetaminophen [Tylenol] 650 mg PO Q6H PRN 11/30/16 [History] Albuterol/Ipratropium [DuoNeb 3.0-0.5 MG/3 ML] 3 ml INH Q4H PRN 11/30/16 [ History] Calcium Carbonate [Tums] 1,000 mg PO Q6H PRN 11/30/16 [History] Polyethylene Glycol 3350 [MiraLAX] 1 pkt PO DAILY 11/30/16 [History] Warfarin [Coumadin] 1 mg PO MOWEFR@1800 11/30/16 [History] Albuterol/Ipratropium [DuoNeb 3.0-0.5 MG/3 ML] 3 ml INH BID 01/05/17 [History] Cetirizine [ZyrTEC] 10 mg PO DAILY 01/05/17 [History] Dextromethorphan/guaiFENesin [Robitussin DM] 5 ml PO Q12H PRN 01/05/17 [History] Cefdinir [Omnicef] 300 mg PO BID #20 cap 01/06/17 [Rx] Patient Handouts: Community-Acquired Pneumonia, Adult, Heart Failure, Warfarin Coagulopathy, Hypoxemia Forms: ED Department Discharge Referrals: Azul Boggs MD [Primary Care Provider] - - Discharge Summary/Plan Comment DC Time >30 min.: No Discharge Summary/Plan Comment: 1. Pneumonia- omnicef 300mg PO BID x 10days; duoneb treatment Q6 and PRN 2. CHF exacerbation- continue home lasix 3. hypoxemia- continue home O2 at 2L 4. coagulopathy- restart coumadin today 5. return to ER for worsening symptoms 6. follow up with Dr Ajith jordan 01/12/2017 - Patient Data Vitals - Most Recent: Last Vital Signs Temp 36.7 C 01/06/17 05:24 Pulse 76 01/06/17 05:24 Resp 20 01/06/17 05:24 BP 101/59 L 01/06/17 05:24 Pulse Ox 94 L 01/06/17 10:00 Weight - Most Recent: 57.408 kg I&O - Last 24 hours: Intake & Output 01/05/17 01/06/17 01/06/17 22:59 06:59 14:59 Intake Total 860 50 Balance 860 50 Lab Results - Last 24 hrs: Laboratory Results - last 24 hr 01/06/17 01/06/17 01/06/17 Range/Units 07:05 07:05 07:05 WBC 7.5 (5.0-10.0) 10^3/uL RBC 2.79 L (3.80-5.50) 10^6/uL Hgb 9.1 L (12.0-16.0) g/dL Hct 27.4 L (37.0-47.0) % MCV 98.1 H (82.0-92.0) fL MCH 32.6 H (27.0-31.0) pg MCHC 33.2 (32.0-36.0) g/dL RDW 14.5 (11.5-14.5) % Plt Count 181 (150-300) 10^3/uL MPV 6.9 L (7.4-10.4) fL Neut % (Auto) 59.1 (50.0-70.0) % Lymph % (Auto) 19.9 L (20.0-40.0) % [place] % (Auto) 15.9 H (2.0-8.0) % Eos % (Auto) 4.3 H (1.0-3.0) % Baso % (Auto) 0.8 (0.0-1.0) % Neut # 4.4 (2.5-7.0) 10^3/uL Lymph # 1.5 (1.0-4.0) 10^3/uL [place] # 1.2 H (0.1-0.8) 10^3/uL Eos # 0.3 (0.1-0.3) 10^3/uL Baso # 0.1 (0.0-0.1) 10^3/uL PT (8.9-11.4) SEC INR (0.9-1.1) Sodium 141 (136-145) mmol/L Potassium 4.4 (3.3-5.3) mmol/L Chloride 103 (98-115) mmol/L Carbon Dioxide 34.0 H (21.0-32.0) mmol/L BUN 16 (6-25) mg/dL Creatinine 0.66 (0.51-1.17) mg/dL Est Cr Clr Drug Dosing 47.50 mL/min Estimated GFR (MDRD) > 60 mL/min Glucose 84 (70-110) mg/dL Calcium 8.4 L (8.7-10.3) mg/dL B-Natriuretic Peptide 525 H (0-100) pg/mL /02/19 Range/Units 07:05 WBC (5.0-10.0) 10^3/uL RBC (3.80-5.50) 10^6/uL Hgb (12.0-16.0) g/dL Hct (37.0-47.0) % MCV (82.0-92.0) fL MCH (27.0-31.0) pg MCHC (32.0-36.0) g/dL RDW (11.5-14.5) % Plt Count (150-300) 10^3/uL MPV (7.4-10.4) fL Neut % (Auto) (50.0-70.0) % Lymph % (Auto) (20.0-40.0) % [place] % (Auto) (2.0-8.0) % Eos % (Auto) (1.0-3.0) % Baso % (Auto) (0.0-1.0) % Neut # (2.5-7.0) 10^3/uL Lymph # (1.0-4.0) 10^3/uL [place] # (0.1-0.8) 10^3/uL Eos # (0.1-0.3) 10^3/uL Baso # (0.0-0.1) 10^3/uL PT 3.2 L (8.9-11.4) SEC INR 3.0 H (0.9-1.1) Sodium (136-145) mmol/L Potassium (3.3-5.3) mmol/L Chloride (98-115) mmol/L Carbon Dioxide (21.0-32.0) mmol/L BUN (6-25) mg/dL Creatinine (0.51-1.17) mg/dL Est Cr Clr Drug Dosing mL/min Estimated GFR (MDRD) mL/min Glucose (70-110) mg/dL Calcium (8.7-10.3) mg/dL B-Natriuretic Peptide (0-100) pg/mL Med Orders - Current: Current Medications Acetaminophen (Tylenol) 650 mg PO Q6H PRN PRN Reason: Pain Last Admin: 01/05/17 21:22 Dose: 650 mg Albuterol/Ipratropium (Duoneb 3.0-0.5 Mg/3 Ml) 3 ml NEB Q4H PRN PRN Reason: Shortness Of Breath/wheezing Last Admin: 01/05/17 07:00 Dose: 3 ml Albuterol/Ipratropium (Duoneb 3.0-0.5 Mg/3 Ml) 3 ml NEB Q6HRRT [facility] Last Admin: 01/06/17 05:16 Dose: 3 ml Atropine Sulfate (Atropine 0.1 Mg/Ml) 0 mg IVPUSH ASDIRECTED PRN PRN Reason: Heart Calcium Carbonate/Glycine (Tums) 1,000 mg PO Q6H PRN PRN Reason: Heartburn Ceftriaxone Sodium (Rocephin) 1 gm IVPUSH Q24H [facility] Last Admin: 01/05/17 22:21 Dose: 1 gm Cetirizine HCl (Zyrtec) 10 mg PO DAILY [facility] Last Admin: 01/06/17 08:28 Dose: 10 mg Docusate Sodium (Colace) 100 mg PO DAILY [facility] Last Admin: 01/06/17 08:28 Dose: 100 mg Epinephrine HCl (Epinephrine 1:10,000) 1 mg IVPUSH ASDIRECTED PRN PRN Reason: Heart Furosemide (Lasix) 20 mg IVPUSH DAILY [facility] Last Admin: 01/06/17 08:24 Dose: 20 mg Vancomycin HCl 1 gm/ Sodium (Chloride) 270 mls @ 180 mls/hr IV Q24H [facility] Last Admin: 01/05/17 16:04 Dose: 180 mls/hr Lidocaine HCl (Xylocaine 2%) 0 mg IVPUSH ASDIRECTED PRN PRN Reason: Heart Multivitamins/Minerals (Centrum) 1 tab PO DAILY [facility] Last Admin: 01/06/17 08:27 Dose: 1 tab Multivitamins/Minerals (Ocuvite) 1 each PO BID [facility] Last Admin: 01/06/17 08:27 Dose: 1 each Nitroglycerin (Nitrostat) 0.4 mg SL ASDIRECTED PRN PRN Reason: Chest Pain Polyethylene Glycol (Miralax) 17 gm PO DAILY [facility] Last Admin: 01/06/17 08:27 Dose: 17 gm Simvastatin (Zocor) 20 mg PO BEDTIME [facility] Last Admin: 01/05/17 20:21 Dose: 20 mg Sodium Chloride (Syrex Flush) 5 ml FLUSH Q8HR PRN PRN Reason: Keep Vein Open Last Admin: 01/06/17 08:24 Dose: 5 ml Timolol Maleate (Timoptic 0.5% Oph Soln) 0 ml EYEBOTH DAILY [facility] Last Admin: 01/06/17 08:28 Dose: 1 drop Vancomycin HCl (Pharmacy To Dose - Vancomycin) 0 dose .XX ASDIRECTED [facility] Warfarin Sodium (Coumadin) 2 mg PO SuTuThSa@1800 [facility] Warfarin Sodium (Coumadin) 1 mg PO MOWEFR@1800 [facility] Discontinued Medications Acetaminophen (Tylenol Extra Strength) Confirm Administered Dose 1,000 mg .ROUTE .STK-MED ONE Stop: 01/04/17 21:14 Last Admin: 01/04/17 21:52 Dose: Not Given Acetaminophen (Tylenol Extra Strength) 1,000 mg PO ONETIME ONE Stop: 01/04/17 21:20 Last Admin: 01/04/17 21:20 Dose: 1,000 mg Albuterol/Ipratropium (Duoneb 3.0-0.5 Mg/3 Ml) Confirm Administered Dose 3 ml .ROUTE .STK-MED ONE Stop: 01/04/17 21:14 Last Admin: 01/04/17 21:52 Dose: Not Given Albuterol/Ipratropium (Duoneb 3.0-0.5 Mg/3 Ml) 3 ml NEB ONETIME ONE Stop: 01/04/17 21:19 Last Admin: 01/04/17 21:20 Dose: 3 ml Albuterol/Ipratropium (Duoneb 3.0-0.5 Mg/3 Ml) 3 ml NEB Q4HRRT [facility] Last Admin: 01/05/17 10:48 Dose: Not Given Vancomycin HCl 1 gm/ Sodium (Chloride) 250 mls @ 167 mls/hr IV Q24H [facility] Last Admin: 01/04/17 23:02 Dose: 167 mls/hr Potassium Chloride (Klor-Con M20) 40 meq PO ONETIME ONE Stop: 01/05/17 12:01 Last Admin: 01/05/17 12:09 Dose: 40 meq *Q Meaningful Use (DIS) - VTE *Q VTE Criteria *Q: - Stroke *Q Stroke Criteria *Q: - AMI *Q AMI Criteria *Q:
[2017-01-06] MEDS ORDERED: Warfarin 2 MG Tab PO SCH (18:00)
== END 2017-01-06 13:25 | DRG 291 ==
LOC: KA.ED 20:59 → KA.MS 22:29
PROVIDERS: ADMIT Physician Assistant Medical; ATTEND Physician Assistant Medical
DX: I50.9 Heart failure, unspecified (principal); J18.9 Pneumonia, unspecified organism; R09.02 Hypoxemia; E87.6 Hypokalemia; I48.91 Unspecified atrial fibrillation; I25.10 Atherosclerotic heart disease of native coronary artery without angina pectoris; D64.9 Anemia, unspecified; F41.9 Anxiety disorder, unspecified; K21.9 Gastro-esophageal reflux disease without esophagitis; Z88.8 Allergy status to other drugs, medicaments and biological substances; Z79.01 Long term (current) use of anticoagulants; Z79.82 Long term (current) use of aspirin; Z79.899 Other long term (current) drug therapy; Z95.0 Presence of cardiac pacemaker; Z99.81 Dependence on supplemental oxygen; Z95.5 Presence of coronary angioplasty implant and graft
CPT/HCPCS: 36415; 71020; 80053; 81001; 83880; 84484; 85025; 85610; 85730; 87040 ×2; 87070; 87077; 87186; 87205; 99285; A9270; 80048; 87804; 94640; J0696; J1940; J3370; J7050

== ENCOUNTER 2017-01-06 20:34 | Inpatient (IN) | payer MEDICARE, OTHER, MEDICAID ==
[2017-01-06] MEDS ORDERED: Acetaminophen 500 MG Tab PO ONE (20:47)
[2017-01-06] MEDS ORDERED: Albuterol/Ipratropium 3.0-0.5 MG/3 ML Neb Soln NEB PRN (20:48)
[2017-01-06] MEDS: cefTRIAXone 1 GM Vial IVPUSH SCH (20:58)
[2017-01-06] MEDS ORDERED: Acetaminophen 325 MG Tab PO PRN (21:09)
[2017-01-06] MEDS ORDERED: Calcium Carbonate 500 MG Tab.Chew PO PRN (21:09)
[2017-01-06] MEDS ORDERED: Nitroglycerin 0.4 MG Tab.SL SL PRN (21:09)
[2017-01-06] MEDS ORDERED: Non-Formulary Medication 1 Each (Timolol Maleate 1 DROP) EYEBOTH SCH (21:15)
[2017-01-06] MEDS: Multivitamins with Minerals/Iron/Folic Acid/Lycopene Tab PO SCH (21:53)
[2017-01-06] MEDS: Docusate Sodium 100 MG Cap PO SCH (21:53)
[2017-01-06] MEDS: Polyethylene Glycol 3350 Powder 17 GM Packet PO SCH (21:53)
[2017-01-06] MEDS: Cetirizine 10 MG Tab PO SCH (21:54)
[2017-01-06] MEDS ORDERED: Simvastatin 20 MG Tab PO SCH (21:55)
[2017-01-06] MEDS: Furosemide 40 MG Tab PO SCH (21:56)
[2017-01-06] MEDS: Lutein/Minerals/Vitamins A, C & E Tab PO SCH (22:00)
[2017-01-06] MEDS: Simvastatin 20 MG Tab PO SCH (22:00)
[2017-01-06] MEDS: Albuterol/Ipratropium 3.0-0.5 MG/3 ML Neb Soln NEB SCH (22:01)
[2017-01-06] MEDS: Sodium Chloride 0.9% 5 ML Syringe FLUSH PRN (23:01)
[2017-01-07] MEDS: Albuterol/Ipratropium 3.0-0.5 MG/3 ML Neb Soln NEB SCH ×6 (01:05→20:54)
[2017-01-07] MEDS ORDERED: Sodium Chloride 0.9% 500 ML IV ONE (02:45)
[2017-01-07] MEDS ORDERED: TIMOLOL 0.5% EYEBOTH SCH (07:00)
[2017-01-07] MEDS ORDERED: Furosemide 40 MG/4 ML VIAL IVPUSH ONE (08:19)
[2017-01-07 08:22] LABS: CHLORIDE,CL 102 mmol/L (98-115); SODIUM,NA 140 mmol/L (136-145)
--- NOTE | 2017-01-07 08:28 | PCM.PN ---
- General Info Date of Service: 01/07/17 Admission Dx/Problem (Free Text): 1. pneumonia 2. hypoxia 3. coagulopathy 4. possible aspiration 5. fever Subjective Update: Pt sitting at bedside without complaints. Pt states that after she takes her pills she begins to choke. Pt reports this occurred last night [place] the [place] and believes that this episode caused her to become short of breath. Pt tolerates eating without difficulty but taking her medications with water is a problem Functional Status: Reports: pain controlled, tolerating diet, ambulating, urinating, incentive spirometry Pain Score: 0 - Review of Systems General: Reports: no symptoms HEENT: Reports: no symptoms Pulmonary: Reports: shortness of breath Cardiovascular: Reports: no symptoms Gastrointestinal: Reports: No symptoms Genitourinary: Reports: no symptoms Musculoskeletal: Reports: no symptoms Skin: Reports: no symptoms Neurological: Reports: no symptoms Psychiatric: Reports: no symptoms - Patient Data Vitals - most recent: Last Vital Signs Temp 36.9 C 01/07/17 05:22 Pulse 77 01/07/17 05:22 Resp 24 H 01/07/17 05:22 BP 131/71 01/07/17 05:22 Pulse Ox 96 01/07/17 05:13 Weight - most recent: 57.408 kg I&O - last 24 hours: Intake & Output 01/06/17 01/07/17 01/07/17 22:59 06:59 14:59 Intake Total 150 785 Output Total 150 Balance 0 785 Lab Results last 24 hrs: Laboratory Results - last 24 hr 01/07/17 01/07/17 01/07/17 Range/Units 07:45 07:45 07:45 WBC 7.6 (5.0-10.0) 10^3/uL RBC 2.73 L (3.80-5.50) 10^6/uL Hgb 8.7 L (12.0-16.0) g/dL Hct 26.7 L (37.0-47.0) % MCV 97.7 H (82.0-92.0) fL MCH 31.7 H (27.0-31.0) pg MCHC 32.4 (32.0-36.0) g/dL RDW 14.3 (11.5-14.5) % Plt Count 186 (150-300) 10^3/uL MPV 6.9 L (7.4-10.4) fL Neut % (Auto) 59.8 (50.0-70.0) % Lymph % (Auto) 20.5 (20.0-40.0) % [place] % (Auto) 14.7 H (2.0-8.0) % Eos % (Auto) 3.7 H (1.0-3.0) % Baso % (Auto) 1.3 H (0.0-1.0) % Neut # 4.5 (2.5-7.0) 10^3/uL Lymph # 1.6 (1.0-4.0) 10^3/uL [place] # 1.1 H (0.1-0.8) 10^3/uL Eos # 0.3 (0.1-0.3) 10^3/uL Baso # 0.1 (0.0-0.1) 10^3/uL PT 23.6 H (8.9-11.4) SEC INR 2.2 H (0.9-1.1) B-Natriuretic Peptide 669 H (0-100) pg/mL Med Orders - Current: Current Medications Acetaminophen (Tylenol) 650 mg PO Q4H PRN PRN Reason: Pain (Mild 1-3)/fever Albuterol/Ipratropium (Duoneb 3.0-0.5 Mg/3 Ml) 3 ml NEB Q6HRRT PRN PRN Reason: Shortness of Breath Last Admin: 01/06/17 21:15 Dose: 3 ml Albuterol/Ipratropium (Duoneb 3.0-0.5 Mg/3 Ml) 3 ml NEB Q4HRRT [facility] Last Admin: 01/07/17 05:12 Dose: 3 ml Calcium Carbonate/Glycine (Tums) 1,000 mg PO Q6H PRN PRN Reason: Heartburn Ceftriaxone Sodium (Rocephin) 1 gm IVPUSH Q24H [facility] Last Admin: 01/06/17 20:58 Dose: 1 gm Cetirizine HCl (Zyrtec) 10 mg PO DAILY [facility] Last Admin: 01/06/17 21:54 Dose: Not Given Docusate Sodium (Colace) 100 mg PO DAILY [facility] Last Admin: 01/06/17 21:53 Dose: Not Given Furosemide (Lasix) 40 mg PO BIDDIURETIC [facility] Last Admin: 01/06/17 21:56 Dose: Not Given Furosemide (Lasix) 20 mg IVPUSH DAILY ONE Stop: 01/07/17 08:20 Guaifenesin/Phenylephrine HCl (Robitussin Dm) 5 ml PO Q12H PRN PRN Reason: Cough Vancomycin HCl 1 gm/ Sodium (Chloride) 250 mls @ 167 mls/hr IV Q24H [facility] Last Admin: 01/06/17 21:08 Dose: 167 mls/hr Multivitamins/Minerals (Centrum) 1 tab PO DAILY [facility] Last Admin: 01/06/17 21:53 Dose: Not Given Multivitamins/Minerals (Ocuvite) 1 each PO BID [facility] Last Admin: 01/06/17 22:00 Dose: Not Given Nitroglycerin (Nitrostat) 0.4 mg SL ASDIRECTED PRN PRN Reason: Chest Pain Timolol Gel 0.5% Oph (Own Med) 0 each EYEBOTH DAILY@0700 [facility] Polyethylene Glycol (Miralax) 17 gm PO DAILY [facility] Last Admin: 01/06/17 21:53 Dose: Not Given Simvastatin (Zocor) 20 mg PO BEDTIME [facility] Last Admin: 01/06/17 22:00 Dose: Not Given Sodium Chloride (Syrex Flush) 5 ml FLUSH Q8H PRN PRN Reason: Keep Vein Open Last Admin: 01/06/17 23:01 Dose: 5 ml Vancomycin HCl (Pharmacy To Dose - Vancomycin) 1 dose .XX ASDIRECTED [facility] Warfarin Sodium (Coumadin) 1 mg PO MOWEFR@1800 [facility] Warfarin Sodium (Coumadin) 2 mg PO SUTUTHSA@1800 [facility] Discontinued Medications Acetaminophen (Tylenol Extra Strength) 1,000 mg PO ONETIME ONE Stop: 01/06/17 20:48 Last Admin: 01/06/17 21:13 Dose: 1,000 mg Acetaminophen (Tylenol) 650 mg PO Q6H PRN PRN Reason: Pain Sodium Chloride (Normal Saline) 500 mls @ 500 mls/hr IV ONETIME ONE Stop: 01/07/17 03:44 Last Admin: 01/07/17 05:11 Dose: Not Given Non-Formulary Medication (Timolol Maleate) 1 drop EYEBOTH DAILY [facility] Last Admin: 01/07/17 00:29 Dose: Not Given Simvastatin (Zocor) 20 mg PO BEDTIME [facility] Simvastatin (Zocor) 20 mg PO BEDTIME [facility] - Exam Quality Assessment: supplemental oxygen General: alert, oriented HEENT: Pupils equal, Pupils reactive, EOMI, Mucous membr. moist/pink Neck: supple Lungs: Clear to auscultation, Normal respiratory effort Cardiovascular: regular rate, regular rhythm Abdomen: bowel sounds present, soft, no tenderness, no distension Back Exam: normal inspection, full range of motion Extremities: no edema Skin: warm, dry, intact Neurological: no new focal deficit Psy/Mental Status: alert, normal affect, normal mood - Problem List Review Problem List Initiated/Reviewed/Updated: Yes - My Orders Last 24 Hours: My Active Orders 01/06/17 20:48 RT Aerosol Therapy [RC] Albuterol/Ipratropium [DuoNeb 3.0-0.5 MG/3 ML] 3 ml NEB Q6HRRT PRN 01/06/17 21:00 Vancomycin Pharmacy to Dose [Pharmacy to Dose - Vancomycin] 1 dose .XX ASDIRECTED cefTRIAXone [Rocephin] 1 gm IVPUSH Q24H 01/06/17 21:06 Patient Status [ADT] Routine Bedrest Bathroom Privileges [RC] ASDIRECTED Oxygen Therapy [RC] PRN VTE/DVT Education [RC] PER UNIT ROUTINE Vital Signs [RC] 0300,0700,1100,1500,1900,2300 Acetaminophen [Tylenol] 650 mg PO Q4H PRN Sodium Chloride 0.9% [Syrex Flush] 5 ml FLUSH Q8H PRN Saline Lock Insert [OM.PC] Routine Resuscitation Status Routine 01/06/17 21:07 Pulse Oximetry [RC] .PRN 01/06/17 21:09 Calcium Carbonate [Tums] 1,000 mg PO Q6H PRN Dextromethorphan/guaiFENesin [Robitussin DM] 5 ml PO Q12H PRN Nitroglycerin [Nitrostat] 0.4 mg SL ASDIRECTED PRN 01/06/17 21:15 Albuterol/Ipratropium [DuoNeb 3.0-0.5 MG/3 ML] 3 ml NEB Q4HRRT Cetirizine [ZyrTEC] 10 mg PO DAILY Docusate Sodium [Colace] 100 mg PO DAILY FA/Lycopene/Lut/MV,Ca,Iron,Min [Centrum] 1 tab PO DAILY Furosemide [Lasix] 40 mg PO BIDDIURETIC [place]in/Minerals/Vit A,C & E [Ocuvite] 1 each PO BID Polyethylene Glycol 3350 [MiraLAX] 17 gm PO DAILY 01/06/17 22:00 Simvastatin [Zocor] 20 mg PO BEDTIME Vancomycin 1 gm Sodium Chloride 0.9% [Normal Saline] 250 ml IV Q24H 01/07/17 05:11 Chest 1V Frontal [CR] AM 01/07/17 07:00 Patient's Own Medication [Ptom] 0 each EYEBOTH DAILY@0700 01/07/17 07:45 B-TYPE NATRIURETIC PEPTIDE,BNP [CHEM] Routine BASIC METABOLIC PANEL,BMP [CHEM] AM 01/07/17 08:19 Furosemide [Lasix] 20 mg IVPUSH DAILY ONE 01/07/17 08:21 Weight Daily [Height and Weight] [RC] DAILY 01/07/17 18:00 Warfarin [Coumadin] 2 mg PO SUTUTHSA@1800 01/07/17 Breakfast 2 Gram Sodium Diet [DIET] 01/08/17 08:19 B-TYPE NATRIURETIC PEPTIDE,BNP [CHEM] Routine BASIC METABOLIC PANEL,BMP [CHEM] Routine CBC WITH AUTO DIFF [HEME] Routine INR,PT,PROTHROMBIN TIME [COAG] Routine 01/08/17 18:00 Warfarin [Coumadin] 1 mg PO MOWEFR@1800 - Assessment Assessment:: 1. pneumonia- continue rocephin/vanco 2. hypoxemia 3. possible aspiration 4. coagulopathy 5. fever 6. CHF - Plan Plan:: 1. pneumonia- continue vanco/rocephin 2. hypoxemia- wean supplemental O2 to 2L as tolerated 3. coagulopathy- restart coumadin and recheck INR in am 4. fever- tylenol PRN 5. possible aspiration- swallow study, medications in apple sauce until otherwise noted 6. CHF- lasix 20mg IV now and recheck BNP in am
[2017-01-07] MEDS: Timolol Maleate 0.5% Ophth Soln 15 ML Bottle EYEBOTH SCH (09:59)
[2017-01-07] MEDS: Docusate Sodium 100 MG Cap PO SCH (10:00)
[2017-01-07] MEDS: Lutein/Minerals/Vitamins A, C & E Tab PO SCH ×2 (10:01→20:33)
[2017-01-07] MEDS: Multivitamins with Minerals/Iron/Folic Acid/Lycopene Tab PO SCH (10:01)
[2017-01-07] MEDS: Cetirizine 10 MG Tab PO SCH (10:01)
[2017-01-07] MEDS: Polyethylene Glycol 3350 Powder 17 GM Packet PO SCH ×2 (10:01→10:02)
[2017-01-07] MEDS: Sodium Chloride 0.9% 5 ML Syringe FLUSH PRN ×2 (10:03→20:48)
[2017-01-07] MEDS: Furosemide 40 MG Tab PO SCH (17:50)
[2017-01-07] MEDS: Warfarin 2 MG Tab PO SCH (17:50)
[2017-01-07] MEDS: guaiFENesin/Dextromethorphan 100-10 MG/5 ML Soln 5 ML Cup PO PRN (17:53)
[2017-01-07] MEDS: Simvastatin 20 MG Tab PO SCH (20:34)
[2017-01-07] MEDS: Acetaminophen 325 MG Tab PO PRN (20:34)
[2017-01-07] MEDS: cefTRIAXone 1 GM Vial IVPUSH SCH (20:40)
[2017-01-07] MEDS ORDERED: Simvastatin 20 MG Tab PO SCH (21:00)
[2017-01-08] MEDS: Albuterol/Ipratropium 3.0-0.5 MG/3 ML Neb Soln NEB SCH ×6 (01:14→20:45)
[2017-01-08] MEDS: Timolol Maleate 0.5% Ophth Soln 15 ML Bottle EYEBOTH SCH (06:27)
[2017-01-08 07:59] LABS: CHLORIDE,CL 103 mmol/L (98-115); SODIUM,NA 141 mmol/L (136-145)
[2017-01-08] MEDS: Multivitamins with Minerals/Iron/Folic Acid/Lycopene Tab PO SCH (09:16)
[2017-01-08] MEDS: Cetirizine 10 MG Tab PO SCH (09:17)
[2017-01-08] MEDS: Lutein/Minerals/Vitamins A, C & E Tab PO SCH ×2 (09:17→20:44)
[2017-01-08] MEDS: Docusate Sodium 100 MG Cap PO SCH (09:17)
[2017-01-08] MEDS: Polyethylene Glycol 3350 Powder 17 GM Packet PO SCH (09:19)
[2017-01-08] MEDS: Furosemide 40 MG Tab PO SCH ×2 (09:21→17:31)
--- NOTE | 2017-01-08 10:01 | PCM.PN ---
- General Info Date of Service: 01/08/17 Subjective Update: Pt reports she is feeling better this am. Pt states she has had no choking episodes since taking her medications in apple sauce Functional Status: Reports: pain controlled, tolerating diet, ambulating, urinating, incentive spirometry - Review of Systems General: Reports: no symptoms HEENT: Reports: no symptoms Pulmonary: Reports: shortness of breath Cardiovascular: Reports: no symptoms Gastrointestinal: Reports: No symptoms Genitourinary: Reports: no symptoms Musculoskeletal: Reports: no symptoms Skin: Reports: no symptoms Neurological: Reports: no symptoms Psychiatric: Reports: no symptoms - Patient Data Vitals - most recent: Last Vital Signs Temp 36.6 C 01/08/17 07:00 Pulse 69 01/08/17 07:00 Resp 22 H 01/08/17 07:00 BP 116/65 01/08/17 07:00 Pulse Ox 97 01/08/17 07:00 Weight - most recent: 57.748 kg I&O - last 24 hours: Intake & Output 01/07/17 01/08/17 01/08/17 22:59 06:59 14:59 Intake Total 270 100 Output Total 150 1 Balance 120 99 Lab Results last 24 hrs: Laboratory Results - last 24 hr 01/07/17 01/08/17 01/08/17 Range/Units 21:20 07:10 07:10 WBC 6.9 (5.0-10.0) 10^3/uL RBC 2.69 L (3.80-5.50) 10^6/uL Hgb 8.6 L (12.0-16.0) g/dL Hct 26.4 L (37.0-47.0) % MCV 98.1 H (82.0-92.0) fL MCH 32.2 H (27.0-31.0) pg MCHC 32.8 (32.0-36.0) g/dL RDW 14.4 (11.5-14.5) % Plt Count 177 (150-300) 10^3/uL MPV 6.9 L (7.4-10.4) fL Neut % (Auto) 64.7 (50.0-70.0) % Lymph % (Auto) 18.0 L (20.0-40.0) % [place] % (Auto) 13.5 H (2.0-8.0) % Eos % (Auto) 3.0 (1.0-3.0) % Baso % (Auto) 0.8 (0.0-1.0) % Neut # 4.5 (2.5-7.0) 10^3/uL Lymph # 1.2 (1.0-4.0) 10^3/uL [place] # 0.9 H (0.1-0.8) 10^3/uL Eos # 0.2 (0.1-0.3) 10^3/uL Baso # 0.1 (0.0-0.1) 10^3/uL PT 29.6 H (8.9-11.4) SEC INR 2.8 H (0.9-1.1) Sodium (136-145) mmol/L Potassium (3.3-5.3) mmol/L Chloride (98-115) mmol/L Carbon Dioxide (21.0-32.0) mmol/L BUN (6-25) mg/dL Creatinine (0.51-1.17) mg/dL Est Cr Clr Drug Dosing mL/min Estimated GFR (MDRD) mL/min Glucose (70-110) mg/dL Calcium (8.7-10.3) mg/dL B-Natriuretic Peptide (0-100) pg/mL Vancomycin Trough 12.3 (10-20) ug/mL 01/08/17 Range/Units 07:10 WBC (5.0-10.0) 10^3/uL RBC (3.80-5.50) 10^6/uL Hgb (12.0-16.0) g/dL Hct (37.0-47.0) % MCV (82.0-92.0) fL MCH (27.0-31.0) pg MCHC (32.0-36.0) g/dL RDW (11.5-14.5) % Plt Count (150-300) 10^3/uL MPV (7.4-10.4) fL Neut % (Auto) (50.0-70.0) % Lymph % (Auto) (20.0-40.0) % [place] % (Auto) (2.0-8.0) % Eos % (Auto) (1.0-3.0) % Baso % (Auto) (0.0-1.0) % Neut # (2.5-7.0) 10^3/uL Lymph # (1.0-4.0) 10^3/uL [place] # (0.1-0.8) 10^3/uL Eos # (0.1-0.3) 10^3/uL Baso # (0.0-0.1) 10^3/uL PT (8.9-11.4) SEC INR (0.9-1.1) Sodium 141 (136-145) mmol/L Potassium 4.1 (3.3-5.3) mmol/L Chloride 103 (98-115) mmol/L Carbon Dioxide 31.7 (21.0-32.0) mmol/L BUN 18 (6-25) mg/dL Creatinine 0.65 (0.51-1.17) mg/dL Est Cr Clr Drug Dosing 48.23 mL/min Estimated GFR (MDRD) > 60 mL/min Glucose 68 L (70-110) mg/dL Calcium 8.0 L (8.7-10.3) mg/dL B-Natriuretic Peptide 889 H (0-100) pg/mL Vancomycin Trough (10-20) ug/mL Med Orders - Current: Current Medications Acetaminophen (Tylenol) 650 mg PO Q4H PRN PRN Reason: Pain (Mild 1-3)/fever Last Admin: 01/07/17 20:34 Dose: 650 mg Albuterol/Ipratropium (Duoneb 3.0-0.5 Mg/3 Ml) 3 ml NEB Q6HRRT PRN PRN Reason: Shortness of Breath Last Admin: 01/06/17 21:15 Dose: 3 ml Albuterol/Ipratropium (Duoneb 3.0-0.5 Mg/3 Ml) 3 ml NEB Q4HRRT [facility] Last Admin: 01/08/17 08:54 Dose: 3 ml Calcium Carbonate/Glycine (Tums) 1,000 mg PO Q6H PRN PRN Reason: Heartburn Ceftriaxone Sodium (Rocephin) 1 gm IVPUSH Q24H [facility] Last Admin: 01/07/17 20:40 Dose: 1 gm Cetirizine HCl (Zyrtec) 10 mg PO DAILY [facility] Last Admin: 01/08/17 09:17 Dose: 10 mg Docusate Sodium (Colace) 100 mg PO DAILY [facility] Last Admin: 01/08/17 09:17 Dose: 100 mg Furosemide (Lasix) 40 mg PO BIDDIURETIC [facility] Last Admin: 01/08/17 09:21 Dose: 40 mg Furosemide (Lasix) 20 mg IVPUSH NOW ONE Stop: 01/08/17 09:38 Guaifenesin/Phenylephrine HCl (Robitussin Dm) 5 ml PO Q12H PRN PRN Reason: Cough Last Admin: 01/07/17 17:53 Dose: 5 ml Multivitamins/Minerals (Centrum) 1 tab PO DAILY [facility] Last Admin: 01/08/17 09:16 Dose: 1 tab Multivitamins/Minerals (Ocuvite) 1 each PO BID [facility] Last Admin: 01/08/17 09:17 Dose: 1 each Nitroglycerin (Nitrostat) 0.4 mg SL ASDIRECTED PRN PRN Reason: Chest Pain Polyethylene Glycol (Miralax) 17 gm PO DAILY [facility] Last Admin: 01/08/17 09:19 Dose: 17 gm Simvastatin (Zocor) 20 mg PO BEDTIME [facility] Last Admin: 01/07/17 20:34 Dose: 20 mg Sodium Chloride (Syrex Flush) 5 ml FLUSH Q8H PRN PRN Reason: Keep Vein Open Last Admin: 01/07/17 20:48 Dose: 5 ml Timolol Maleate (Timoptic 0.5% Ophth Soln) 0 ml EYEBOTH DAILY@0700 [facility] Last Admin: 01/08/17 06:27 Dose: 1 drop Warfarin Sodium (Coumadin) 1 mg PO MOWEFR@1800 [facility] Warfarin Sodium (Coumadin) 2 mg PO SUTUTHSA@1800 [facility] Last Admin: 01/07/17 17:50 Dose: 2 mg Discontinued Medications Acetaminophen (Tylenol Extra Strength) 1,000 mg PO ONETIME ONE Stop: 01/06/17 20:48 Last Admin: 01/06/17 21:13 Dose: 1,000 mg Acetaminophen (Tylenol) 650 mg PO Q6H PRN PRN Reason: Pain Furosemide (Lasix) 20 mg IVPUSH DAILY ONE Stop: 01/07/17 08:20 Last Admin: 01/07/17 09:59 Dose: 20 mg Vancomycin HCl 1 gm/ Sodium (Chloride) 250 mls @ 167 mls/hr IV Q24H [facility] Last Admin: 01/07/17 22:17 Dose: 167 mls/hr Sodium Chloride (Normal Saline) 500 mls @ 500 mls/hr IV ONETIME ONE Stop: 01/07/17 03:44 Last Admin: 01/07/17 05:11 Dose: Not Given Non-Formulary Medication (Timolol Maleate) 1 drop EYEBOTH DAILY [facility] Last Admin: 01/07/17 00:29 Dose: Not Given Timolol Gel 0.5% Oph (Own Med) 0 each EYEBOTH DAILY@0700 [facility] Last Admin: 01/07/17 14:00 Dose: Not Given Simvastatin (Zocor) 20 mg PO BEDTIME [facility] Simvastatin (Zocor) 20 mg PO BEDTIME [facility] Vancomycin HCl (Pharmacy To Dose - Vancomycin) 1 dose .XX ASDIRECTED [facility] - Exam Quality Assessment: supplemental oxygen General: alert, oriented HEENT: Pupils equal, Pupils reactive, EOMI, Mucous membr. moist/pink Neck: supple Lungs: Crackles Cardiovascular: regular rate, regular rhythm Abdomen: bowel sounds present, soft, no tenderness, no distension Extremities: no edema Skin: warm, dry, intact Neurological: no new focal deficit Psy/Mental Status: alert, normal affect, normal mood - Problem List Review Problem List Initiated/Reviewed/Updated: Yes - My Orders Last 24 Hours: My Active Orders 01/07/17 09:00 Timolol Maleate [Timoptic 0.5% Ophth Soln] 0 ml EYEBOTH DAILY@0700 01/07/17 15:18 Swallow Screen [Nursing Bedside Swallow Screen] [RC] ASDIRECTED 01/07/17 18:00 Warfarin [Coumadin] 2 mg PO SUTUTHSA@1800 01/08/17 09:37 Furosemide [Lasix] 20 mg IVPUSH NOW ONE 01/08/17 18:00 Warfarin [Coumadin] 1 mg PO MOWEFR@1800 - Assessment Assessment:: 1. pneumonia- continue rocephin/vanco 2. hypoxemia 3. possible aspiration 4. coagulopathy 5. fever 6. CHF - Plan Plan:: 1. pneumonia- sputum cultures sensitive to rocephin, will stop vancomycin 2. hypoxemia- wean supplemental O2 to 2L as tolerated 3. coagulopathy- INR 2.8 today. continue medication as scheduled 4. fever- resolved 5. possible aspiration- swallow study, medications in apple sauce until otherwise noted 6. CHF- lasix 20mg IV now
[2017-01-08] MEDS ORDERED: Furosemide 40 MG/4 ML VIAL IVPUSH ONE (10:15)
[2017-01-08] MEDS: cefTRIAXone 1 GM Vial IVPUSH SCH (20:44)
[2017-01-08] MEDS: Simvastatin 20 MG Tab PO SCH (20:45)
[2017-01-08] MEDS: guaiFENesin/Dextromethorphan 100-10 MG/5 ML Soln 5 ML Cup PO PRN (20:55)
[2017-01-09] MEDS: Albuterol/Ipratropium 3.0-0.5 MG/3 ML Neb Soln NEB SCH ×6 (01:35→23:09)
[2017-01-09] MEDS: Timolol Maleate 0.5% Ophth Soln 15 ML Bottle EYEBOTH SCH (05:59)
[2017-01-09 08:10] LABS: CHLORIDE,CL 102 mmol/L (98-115); SODIUM,NA 143 mmol/L (136-145)
[2017-01-09] MEDS: Multivitamins with Minerals/Iron/Folic Acid/Lycopene Tab PO SCH (08:47)
[2017-01-09] MEDS: Furosemide 40 MG Tab PO SCH ×2 (08:48→16:48)
[2017-01-09] MEDS: Polyethylene Glycol 3350 Powder 17 GM Packet PO SCH (08:48)
[2017-01-09] MEDS: Docusate Sodium 100 MG Cap PO SCH (08:48)
[2017-01-09] MEDS: Cetirizine 10 MG Tab PO SCH (08:49)
[2017-01-09] MEDS: Lutein/Minerals/Vitamins A, C & E Tab PO SCH ×2 (08:49→23:05)
[2017-01-09] MEDS: guaiFENesin/Dextromethorphan 100-10 MG/5 ML Soln 5 ML Cup PO PRN (10:58)
--- NOTE | 2017-01-09 12:08 | PCM.PN ---
- General Info Date of Service: 01/09/17 Subjective Update: Pt states she feels well. Pt states she wants to start getting up and walking. Pt reports mild shortness of breath with ADL's. Pt is currently on 3L of O2. Pt usually tolerates 2L at home. Functional Status: Reports: pain controlled, tolerating diet, ambulating, urinating, incentive spirometry Pain Score: 0 - Review of Systems General: Reports: no symptoms HEENT: Reports: no symptoms Pulmonary: Reports: shortness of breath Cardiovascular: Reports: no symptoms Gastrointestinal: Reports: No symptoms Genitourinary: Reports: no symptoms Musculoskeletal: Reports: no symptoms Skin: Reports: no symptoms Neurological: Reports: no symptoms Psychiatric: Reports: no symptoms - Patient Data Vitals - most recent: Last Vital Signs Temp 36.0 C 01/09/17 07:00 Pulse 73 01/09/17 07:00 Resp 24 H 01/09/17 07:00 BP 119/64 01/09/17 07:00 Pulse Ox 89 L 01/09/17 10:20 Weight - most recent: 56.869 kg I&O - last 24 hours: Intake & Output 01/08/17 01/09/17 01/09/17 22:59 06:59 14:59 Intake Total 50 Balance 50 Lab Results last 24 hrs: Laboratory Results - last 24 hr 01/09/17 01/09/17 Range/Units 07:10 07:10 WBC 7.2 (5.0-10.0) 10^3/uL RBC 2.71 L (3.80-5.50) 10^6/uL Hgb 8.6 L (12.0-16.0) g/dL Hct 26.5 L (37.0-47.0) % MCV 97.6 H (82.0-92.0) fL MCH 31.6 H (27.0-31.0) pg MCHC 32.4 (32.0-36.0) g/dL RDW 14.2 (11.5-14.5) % Plt Count 188 (150-300) 10^3/uL MPV 7.1 L (7.4-10.4) fL Neut % (Auto) 64.1 (50.0-70.0) % Lymph % (Auto) 18.3 L (20.0-40.0) % [place] % (Auto) 13.6 H (2.0-8.0) % Eos % (Auto) 3.4 H (1.0-3.0) % Baso % (Auto) 0.6 (0.0-1.0) % Neut # 4.7 (2.5-7.0) 10^3/uL Lymph # 1.3 (1.0-4.0) 10^3/uL [place] # 1.0 H (0.1-0.8) 10^3/uL Eos # 0.2 (0.1-0.3) 10^3/uL Baso # 0.0 (0.0-0.1) 10^3/uL Sodium 143 (136-145) mmol/L Potassium 4.0 (3.3-5.3) mmol/L Chloride 102 (98-115) mmol/L Carbon Dioxide 34.8 H (21.0-32.0) mmol/L BUN 16 (6-25) mg/dL Creatinine 0.70 (0.51-1.17) mg/dL Est Cr Clr Drug Dosing 44.78 mL/min Estimated GFR (MDRD) > 60 mL/min Glucose 88 (70-110) mg/dL Calcium 8.1 L (8.7-10.3) mg/dL Med Orders - Current: Current Medications Acetaminophen (Tylenol) 650 mg PO Q4H PRN PRN Reason: Pain (Mild 1-3)/fever Last Admin: 01/07/17 20:34 Dose: 650 mg Albuterol/Ipratropium (Duoneb 3.0-0.5 Mg/3 Ml) 3 ml NEB Q6HRRT PRN PRN Reason: Shortness of Breath Last Admin: 01/06/17 21:15 Dose: 3 ml Albuterol/Ipratropium (Duoneb 3.0-0.5 Mg/3 Ml) 3 ml NEB Q4HRRT [facility] Last Admin: 01/09/17 09:54 Dose: 3 ml Calcium Carbonate/Glycine (Tums) 1,000 mg PO Q6H PRN PRN Reason: Heartburn Ceftriaxone Sodium (Rocephin) 1 gm IVPUSH Q24H [facility] Last Admin: 01/08/17 20:44 Dose: 1 gm Cetirizine HCl (Zyrtec) 10 mg PO DAILY [facility] Last Admin: 01/09/17 08:49 Dose: 10 mg Docusate Sodium (Colace) 100 mg PO DAILY [facility] Last Admin: 01/09/17 08:48 Dose: 100 mg Furosemide (Lasix) 40 mg PO BIDDIURETIC [facility] Last Admin: 01/09/17 08:48 Dose: 40 mg Guaifenesin/Phenylephrine HCl (Robitussin Dm) 5 ml PO Q12H PRN PRN Reason: Cough Last Admin: 01/09/17 10:58 Dose: 5 ml Multivitamins/Minerals (Centrum) 1 tab PO DAILY [facility] Last Admin: 01/09/17 08:47 Dose: 1 tab Multivitamins/Minerals (Ocuvite) 1 each PO BID [facility] Last Admin: 01/09/17 08:49 Dose: 1 each Nitroglycerin (Nitrostat) 0.4 mg SL ASDIRECTED PRN PRN Reason: Chest Pain Polyethylene Glycol (Miralax) 17 gm PO DAILY [facility] Last Admin: 01/09/17 08:48 Dose: 17 gm Simvastatin (Zocor) 20 mg PO BEDTIME [facility] Last Admin: 01/08/17 20:45 Dose: 20 mg Sodium Chloride (Syrex Flush) 5 ml FLUSH Q8H PRN PRN Reason: Keep Vein Open Last Admin: 01/07/17 20:48 Dose: 5 ml Timolol Maleate (Timoptic 0.5% Ophth Soln) 0 ml EYEBOTH DAILY@0700 [facility] Last Admin: 01/09/17 05:59 Dose: 1 drop Warfarin Sodium (Coumadin) 1 mg PO MOWEFR@1800 [facility] Last Admin: 01/08/17 17:32 Dose: 1 mg Warfarin Sodium (Coumadin) 2 mg PO SUTUTHSA@1800 [facility] Last Admin: 01/07/17 17:50 Dose: 2 mg Discontinued Medications Acetaminophen (Tylenol Extra Strength) 1,000 mg PO ONETIME ONE Stop: 01/06/17 20:48 Last Admin: 01/06/17 21:13 Dose: 1,000 mg Acetaminophen (Tylenol) 650 mg PO Q6H PRN PRN Reason: Pain Furosemide (Lasix) 20 mg IVPUSH DAILY ONE Stop: 01/07/17 08:20 Last Admin: 01/07/17 09:59 Dose: 20 mg Furosemide (Lasix) 20 mg IVPUSH NOW ONE Stop: 01/08/17 10:16 Last Admin: 01/08/17 10:30 Dose: 20 mg Vancomycin HCl 1 gm/ Sodium (Chloride) 250 mls @ 167 mls/hr IV Q24H [facility] Last Admin: 01/07/17 22:17 Dose: 167 mls/hr Sodium Chloride (Normal Saline) 500 mls @ 500 mls/hr IV ONETIME ONE Stop: 01/07/17 03:44 Last Admin: 01/07/17 05:11 Dose: Not Given Non-Formulary Medication (Timolol Maleate) 1 drop EYEBOTH DAILY [facility] Last Admin: 01/07/17 00:29 Dose: Not Given Timolol Gel 0.5% Oph (Own Med) 0 each EYEBOTH DAILY@0700 [facility] Last Admin: 01/07/17 14:00 Dose: Not Given Simvastatin (Zocor) 20 mg PO BEDTIME [facility] Simvastatin (Zocor) 20 mg PO BEDTIME [facility] Vancomycin HCl (Pharmacy To Dose - Vancomycin) 1 dose .XX ASDIRECTED [facility] - Exam Quality Assessment: supplemental oxygen General: alert, oriented HEENT: Pupils equal, Pupils reactive, EOMI, Mucous membr. moist/pink Neck: supple Lungs: Normal respiratory effort, Crackles Cardiovascular: regular rate, regular rhythm Abdomen: bowel sounds present, soft, no tenderness, no distension Back Exam: normal inspection, full range of motion Extremities: no edema Skin: warm, dry, intact Neurological: no new focal deficit Psy/Mental Status: alert, normal affect, normal mood - Problem List Review Problem List Initiated/Reviewed/Updated: Yes - My Orders Last 24 Hours: My Active Orders 01/08/17 18:00 Warfarin [Coumadin] 1 mg PO MOWEFR@1800 01/08/17 Dinner Thickened Liquids [DIET] 01/10/17 11:30 Swallowing Function w Video [CR] Routine - Assessment Assessment:: 1. pneumonia- continue rocephin/vanco 2. hypoxemia 3. possible aspiration 4. coagulopathy 5. fever 6. CHF - Plan Plan:: 1. pneumonia- continue rocephin 2. hypoxemia- wean supplemental O2 to 2L as tolerated 4. fever- resolved 5. possible aspiration- swallow study, medications in apple sauce until otherwise noted- tomorrow for study 6. PT to evaluate and treat; nursing to assist patient with ambulation TID
[2017-01-09] MEDS: Warfarin 2 MG Tab PO SCH (17:00)
[2017-01-09] MEDS: cefTRIAXone 1 GM Vial IVPUSH SCH (23:05)
[2017-01-09] MEDS: Simvastatin 20 MG Tab PO SCH (23:05)
[2017-01-10] MEDS: Albuterol/Ipratropium 3.0-0.5 MG/3 ML Neb Soln NEB SCH ×4 (05:19→22:18)
[2017-01-10] MEDS: Timolol Maleate 0.5% Ophth Soln 15 ML Bottle EYEBOTH SCH (06:44)
[2017-01-10] MEDS: Polyethylene Glycol 3350 Powder 17 GM Packet PO SCH (08:14)
[2017-01-10] MEDS: Furosemide 40 MG Tab PO SCH ×2 (08:15→16:41)
[2017-01-10] MEDS: Lutein/Minerals/Vitamins A, C & E Tab PO SCH ×2 (08:16→20:04)
[2017-01-10] MEDS: Cetirizine 10 MG Tab PO SCH (08:16)
[2017-01-10] MEDS: Docusate Sodium 100 MG Cap PO SCH (08:16)
[2017-01-10] MEDS: Multivitamins with Minerals/Iron/Folic Acid/Lycopene Tab PO SCH (08:16)
--- NOTE | 2017-01-10 10:49 | PCM.PN ---
- General Info Date of Service: 01/10/17 Admission Dx/Problem (Free Text): 1. pneumonia 2. hypoxia 3. coagulopathy 4. possible aspiration 5. fever Subjective Update: Pt states she feels well. Pt states she wants to start getting up and walking. Pt reports mild shortness of breath with ADL's. Pt is currently on 3L of O2. Pt usually tolerates 2L at home. Functional Status: Reports: pain controlled, tolerating diet, ambulating, urinating, incentive spirometry Pain Score: 0 - Review of Systems General: Reports: no symptoms HEENT: Reports: no symptoms Pulmonary: Reports: shortness of breath Cardiovascular: Reports: no symptoms Gastrointestinal: Reports: No symptoms Genitourinary: Reports: no symptoms Musculoskeletal: Reports: no symptoms Skin: Reports: no symptoms Neurological: Reports: no symptoms Psychiatric: Reports: no symptoms - Patient Data Vitals - most recent: Last Vital Signs Temp 36.6 C 01/10/17 06:50 Pulse 75 01/10/17 06:50 Resp 16 01/10/17 06:50 BP 110/58 L 01/10/17 06:50 Pulse Ox 98 01/10/17 06:50 Weight - most recent: 56.608 kg I&O - last 24 hours: Intake & Output 01/09/17 01/10/17 01/10/17 22:59 06:59 14:59 Intake Total 150 50 Output Total 670 Balance -520 50 Med Orders - Current: Current Medications Acetaminophen (Tylenol) 650 mg PO Q4H PRN PRN Reason: Pain (Mild 1-3)/fever Last Admin: 01/07/17 20:34 Dose: 650 mg Albuterol/Ipratropium (Duoneb 3.0-0.5 Mg/3 Ml) 3 ml NEB Q6HRRT [facility] Last Admin: 01/10/17 05:19 Dose: 3 ml Calcium Carbonate/Glycine (Tums) 1,000 mg PO Q6H PRN PRN Reason: Heartburn Ceftriaxone Sodium (Rocephin) 1 gm IVPUSH Q24H [facility] Last Admin: 01/09/17 23:05 Dose: 1 gm Cetirizine HCl (Zyrtec) 10 mg PO DAILY [facility] Last Admin: 01/10/17 08:16 Dose: 10 mg Docusate Sodium (Colace) 100 mg PO DAILY [facility] Last Admin: 01/10/17 08:16 Dose: 100 mg Furosemide (Lasix) 40 mg PO BIDDIURETIC [facility] Last Admin: 01/10/17 08:15 Dose: 40 mg Guaifenesin/Phenylephrine HCl (Robitussin Dm) 5 ml PO Q12H PRN PRN Reason: Cough Last Admin: 01/09/17 10:58 Dose: 5 ml Multivitamins/Minerals (Centrum) 1 tab PO DAILY [facility] Last Admin: 01/10/17 08:16 Dose: 1 tab Multivitamins/Minerals (Ocuvite) 1 each PO BID [facility] Last Admin: 01/10/17 08:16 Dose: 1 each Nitroglycerin (Nitrostat) 0.4 mg SL ASDIRECTED PRN PRN Reason: Chest Pain Polyethylene Glycol (Miralax) 17 gm PO DAILY [facility] Last Admin: 01/10/17 08:14 Dose: 17 gm Simvastatin (Zocor) 20 mg PO BEDTIME [facility] Last Admin: 01/09/17 23:05 Dose: 20 mg Sodium Chloride (Syrex Flush) 5 ml FLUSH Q8H PRN PRN Reason: Keep Vein Open Last Admin: 01/07/17 20:48 Dose: 5 ml Timolol Maleate (Timoptic 0.5% Ophth Soln) 0 ml EYEBOTH DAILY@0700 [facility] Last Admin: 01/10/17 06:44 Dose: 1 drop Warfarin Sodium (Coumadin) 1 mg PO MOWEFR@1800 [facility] Last Admin: 01/08/17 17:32 Dose: 1 mg Warfarin Sodium (Coumadin) 2 mg PO SUTUTHSA@1800 [facility] Last Admin: 01/09/17 17:00 Dose: 2 mg Discontinued Medications Acetaminophen (Tylenol Extra Strength) 1,000 mg PO ONETIME ONE Stop: 01/06/17 20:48 Last Admin: 01/06/17 21:13 Dose: 1,000 mg Acetaminophen (Tylenol) 650 mg PO Q6H PRN PRN Reason: Pain Albuterol/Ipratropium (Duoneb 3.0-0.5 Mg/3 Ml) 3 ml NEB Q6HRRT PRN PRN Reason: Shortness of Breath Last Admin: 01/06/17 21:15 Dose: 3 ml Albuterol/Ipratropium (Duoneb 3.0-0.5 Mg/3 Ml) 3 ml NEB Q4HRRT [facility] Last Admin: 01/09/17 16:10 Dose: Not Given Furosemide (Lasix) 20 mg IVPUSH DAILY ONE Stop: 01/07/17 08:20 Last Admin: 01/07/17 09:59 Dose: 20 mg Furosemide (Lasix) 20 mg IVPUSH NOW ONE Stop: 01/08/17 10:16 Last Admin: 01/08/17 10:30 Dose: 20 mg Vancomycin HCl 1 gm/ Sodium (Chloride) 250 mls @ 167 mls/hr IV Q24H [facility] Last Admin: 01/07/17 22:17 Dose: 167 mls/hr Sodium Chloride (Normal Saline) 500 mls @ 500 mls/hr IV ONETIME ONE Stop: 01/07/17 03:44 Last Admin: 01/07/17 05:11 Dose: Not Given Non-Formulary Medication (Timolol Maleate) 1 drop EYEBOTH DAILY [facility] Last Admin: 01/07/17 00:29 Dose: Not Given Timolol Gel 0.5% Oph (Own Med) 0 each EYEBOTH DAILY@0700 [facility] Last Admin: 01/07/17 14:00 Dose: Not Given Simvastatin (Zocor) 20 mg PO BEDTIME [facility] Simvastatin (Zocor) 20 mg PO BEDTIME [facility] Vancomycin HCl (Pharmacy To Dose - Vancomycin) 1 dose .XX ASDIRECTED [facility] - Exam Quality Assessment: supplemental oxygen General: alert HEENT: Pupils equal, Pupils reactive, EOMI, Mucous membr. moist/pink Neck: supple Lungs: Crackles Cardiovascular: regular rate, regular rhythm Abdomen: bowel sounds present, soft, no tenderness, no distension Back Exam: normal inspection, full range of motion Extremities: no edema Skin: warm, dry, intact Neurological: no new focal deficit Psy/Mental Status: alert, normal affect, normal mood - Problem List Review Problem List Initiated/Reviewed/Updated: Yes - My Orders Last 24 Hours: My Active Orders 01/09/17 12:08 Ambulate [RC] .PRN PT Evaluation and Treatment [CONS] Routine 01/09/17 17:00 Albuterol/Ipratropium [DuoNeb 3.0-0.5 MG/3 ML] 3 ml NEB Q6HRRT 01/10/17 11:30 Swallowing Function w Video [CR] Routine 01/11/17 05:30 INR,PT,PROTHROMBIN TIME [COAG] Routine 01/11/17 10:46 BMP [BASIC METABOLIC PANEL,BMP] [CHEM] Routine CBC WITH AUTO DIFF [HEME] Routine - Assessment Assessment:: 1. pneumonia- continue rocephin/vanco 2. hypoxemia 3. possible aspiration 4. coagulopathy 5. fever 6. CHF - Plan Plan:: 1. pneumonia- continue rocephin 2. hypoxemia- wean supplemental O2 to 2L as tolerated 4. fever- resolved 5. possible aspiration- swallow study, medications in apple sauce until otherwise noted- today for study 6. PT to evaluate and treat; nursing to assist patient with ambulation TID
[2017-01-10] MEDS: Simvastatin 20 MG Tab PO SCH (20:00)
[2017-01-10] MEDS: cefTRIAXone 1 GM Vial IVPUSH SCH (20:08)
[2017-01-10] MEDS: Sodium Chloride 0.9% 5 ML Syringe FLUSH PRN (22:39)
[2017-01-11] MEDS: Albuterol/Ipratropium 3.0-0.5 MG/3 ML Neb Soln NEB SCH ×4 (05:32→22:48)
[2017-01-11] MEDS: Sodium Chloride 0.9% 5 ML Syringe FLUSH PRN (06:03)
[2017-01-11] MEDS: Timolol Maleate 0.5% Ophth Soln 15 ML Bottle EYEBOTH SCH (06:03)
[2017-01-11 08:15] LABS: CHLORIDE,CL 100 mmol/L (98-115); SODIUM,NA 138 mmol/L (136-145)
[2017-01-11] MEDS: Cetirizine 10 MG Tab PO SCH (08:36)
[2017-01-11] MEDS: Multivitamins with Minerals/Iron/Folic Acid/Lycopene Tab PO SCH (08:36)
[2017-01-11] MEDS: Lutein/Minerals/Vitamins A, C & E Tab PO SCH ×2 (08:37→21:12)
[2017-01-11] MEDS: Docusate Sodium 100 MG Cap PO SCH (08:37)
[2017-01-11] MEDS: Polyethylene Glycol 3350 Powder 17 GM Packet PO SCH (08:37)
[2017-01-11] MEDS: Furosemide 40 MG Tab PO SCH ×2 (08:43→17:25)
--- NOTE | 2017-01-11 09:03 | PCM.PN ---
- General Info Date of Service: 01/11/17 Admission Dx/Problem (Free Text): 1. pneumonia 2. hypoxia 3. coagulopathy 4. possible aspiration 5. fever Subjective Update: Pt states she feels well. Pt states she wants to start getting up and walking. Pt reports mild shortness of breath with ADL's. Pt is currently on 3L of O2. Pt usually tolerates 2L at home. Functional Status: Reports: pain controlled, tolerating diet, ambulating, urinating, incentive spirometry Pain Score: 0 - Review of Systems General: Reports: no symptoms HEENT: Reports: no symptoms Pulmonary: Reports: shortness of breath Cardiovascular: Reports: no symptoms Gastrointestinal: Reports: No symptoms Genitourinary: Reports: no symptoms Musculoskeletal: Reports: no symptoms Skin: Reports: no symptoms Neurological: Reports: no symptoms Psychiatric: Reports: no symptoms - Patient Data Vitals - most recent: Last Vital Signs Temp 36.3 C 01/11/17 07:00 Pulse 82 01/11/17 07:00 Resp 16 01/11/17 07:00 BP 124/69 01/11/17 07:00 Pulse Ox 94 L 01/11/17 07:00 Weight - most recent: 55.928 kg I&O - last 24 hours: Intake & Output 01/10/17 01/11/17 01/11/17 22:59 06:59 14:59 Intake Total 150 0 Output Total 350 100 Balance -200 -100 Lab Results last 24 hrs: Laboratory Results - last 24 hr 01/11/17 01/11/17 01/11/17 Range/Units 07:45 07:45 07:45 WBC 6.2 (5.0-10.0) 10^3/uL RBC 2.89 L (3.80-5.50) 10^6/uL Hgb 9.3 L (12.0-16.0) g/dL Hct 28.2 L (37.0-47.0) % MCV 97.5 H (82.0-92.0) fL MCH 32.0 H (27.0-31.0) pg MCHC 32.9 (32.0-36.0) g/dL RDW 14.6 H (11.5-14.5) % Plt Count 238 (150-300) 10^3/uL MPV 6.9 L (7.4-10.4) fL Neut % (Auto) 57.2 (50.0-70.0) % Lymph % (Auto) 20.5 (20.0-40.0) % [place] % (Auto) 14.0 H (2.0-8.0) % Eos % (Auto) 7.3 H (1.0-3.0) % Baso % (Auto) 1.0 (0.0-1.0) % Neut # 3.4 (2.5-7.0) 10^3/uL Lymph # 1.3 (1.0-4.0) 10^3/uL [place] # 0.9 H (0.1-0.8) 10^3/uL Eos # 0.5 H (0.1-0.3) 10^3/uL Baso # 0.1 (0.0-0.1) 10^3/uL PT 51.7 H (8.9-11.4) SEC INR 4.8 H* (0.9-1.1) Sodium 138 (136-145) mmol/L Potassium 3.7 (3.3-5.3) mmol/L Chloride 100 (98-115) mmol/L Carbon Dioxide 36.1 H (21.0-32.0) mmol/L BUN 11 (6-25) mg/dL Creatinine 0.62 (0.51-1.17) mg/dL Est Cr Clr Drug Dosing 50.56 mL/min Estimated GFR (MDRD) > 60 mL/min Glucose 79 (70-110) mg/dL Calcium 8.3 L (8.7-10.3) mg/dL Med Orders - Current: Current Medications Acetaminophen (Tylenol) 650 mg PO Q4H PRN PRN Reason: Pain (Mild 1-3)/fever Last Admin: 01/07/17 20:34 Dose: 650 mg Albuterol/Ipratropium (Duoneb 3.0-0.5 Mg/3 Ml) 3 ml NEB Q6HRRT [facility] Last Admin: 01/11/17 05:32 Dose: 3 ml Calcium Carbonate/Glycine (Tums) 1,000 mg PO Q6H PRN PRN Reason: Heartburn Cetirizine HCl (Zyrtec) 10 mg PO DAILY [facility] Last Admin: 01/11/17 08:36 Dose: 10 mg Docusate Sodium (Colace) 100 mg PO DAILY [facility] Last Admin: 01/11/17 08:37 Dose: Not Given Doxycycline Hyclate (Vibramycin) 100 mg PO Q12HR [facility] Furosemide (Lasix) 40 mg PO BIDDIURETIC [facility] Last Admin: 01/11/17 08:43 Dose: 40 mg Guaifenesin/Phenylephrine HCl (Robitussin Dm) 5 ml PO Q12H PRN PRN Reason: Cough Last Admin: 01/09/17 10:58 Dose: 5 ml Multivitamins/Minerals (Centrum) 1 tab PO DAILY [facility] Last Admin: 01/11/17 08:36 Dose: 1 tab Multivitamins/Minerals (Ocuvite) 1 each PO BID [facility] Last Admin: 01/11/17 08:37 Dose: 1 each Nitroglycerin (Nitrostat) 0.4 mg SL ASDIRECTED PRN PRN Reason: Chest Pain Polyethylene Glycol (Miralax) 17 gm PO DAILY [facility] Last Admin: 01/11/17 08:37 Dose: Not Given Simvastatin (Zocor) 20 mg PO BEDTIME [facility] Last Admin: 01/10/17 20:00 Dose: 20 mg Sodium Chloride (Syrex Flush) 5 ml FLUSH Q8H PRN PRN Reason: Keep Vein Open Last Admin: 01/11/17 06:03 Dose: 5 ml Timolol Maleate (Timoptic 0.5% Ophth Soln) 0 ml EYEBOTH DAILY@0700 [facility] Last Admin: 01/11/17 06:03 Dose: 1 drop Warfarin Sodium (Coumadin) 1 mg PO MOWEFR@1800 [facility] Last Admin: 01/10/17 18:20 Dose: 1 mg Warfarin Sodium (Coumadin) 2 mg PO SUTUTHSA@1800 [facility] Last Admin: 01/09/17 17:00 Dose: 2 mg Discontinued Medications Acetaminophen (Tylenol Extra Strength) 1,000 mg PO ONETIME ONE Stop: 01/06/17 20:48 Last Admin: 01/06/17 21:13 Dose: 1,000 mg Acetaminophen (Tylenol) 650 mg PO Q6H PRN PRN Reason: Pain Albuterol/Ipratropium (Duoneb 3.0-0.5 Mg/3 Ml) 3 ml NEB Q6HRRT PRN PRN Reason: Shortness of Breath Last Admin: 01/06/17 21:15 Dose: 3 ml Albuterol/Ipratropium (Duoneb 3.0-0.5 Mg/3 Ml) 3 ml NEB Q4HRRT [facility] Last Admin: 01/09/17 16:10 Dose: Not Given Ceftriaxone Sodium (Rocephin) 1 gm IVPUSH Q24H [facility] Last Admin: 01/10/17 20:08 Dose: 1 gm Furosemide (Lasix) 20 mg IVPUSH DAILY ONE Stop: 01/07/17 08:20 Last Admin: 01/07/17 09:59 Dose: 20 mg Furosemide (Lasix) 20 mg IVPUSH NOW ONE Stop: 01/08/17 10:16 Last Admin: 01/08/17 10:30 Dose: 20 mg Vancomycin HCl 1 gm/ Sodium (Chloride) 250 mls @ 167 mls/hr IV Q24H [facility] Last Admin: 01/07/17 22:17 Dose: 167 mls/hr Sodium Chloride (Normal Saline) 500 mls @ 500 mls/hr IV ONETIME ONE Stop: 01/07/17 03:44 Last Admin: 01/07/17 05:11 Dose: Not Given Non-Formulary Medication (Timolol Maleate) 1 drop EYEBOTH DAILY [facility] Last Admin: 01/07/17 00:29 Dose: Not Given Timolol Gel 0.5% Oph (Own Med) 0 each EYEBOTH DAILY@0700 [facility] Last Admin: 01/07/17 14:00 Dose: Not Given Simvastatin (Zocor) 20 mg PO BEDTIME [facility] Simvastatin (Zocor) 20 mg PO BEDTIME [facility] Vancomycin HCl (Pharmacy To Dose - Vancomycin) 1 dose .XX ASDIRECTED [facility] - Exam Quality Assessment: supplemental oxygen General: alert, oriented HEENT: Pupils equal, Pupils reactive, EOMI, Mucous membr. moist/pink Neck: supple Lungs: Crackles Cardiovascular: regular rate, regular rhythm Abdomen: bowel sounds present, soft, no tenderness, no distension Back Exam: normal inspection, full range of motion Extremities: no edema Skin: warm, dry, intact Neurological: no new focal deficit Psy/Mental Status: alert, normal affect, normal mood - Problem List Review Problem List Initiated/Reviewed/Updated: Yes - My Orders Last 24 Hours: My Active Orders 01/10/17 11:30 Swallowing Function w Video [CR] Routine 01/10/17 12:14 Communication Order [RC] DAILY 01/11/17 09:00 Doxycycline [Vibramycin] 100 mg PO Q12HR - Assessment Assessment:: 1. pneumonia/COPD 2. hypoxemia 3. possible aspiration 4. coagulopathy - Plan Plan:: 1. pneumonia/COPD- stop rocephin and start doxycycline 100mg PO BID 2. hypoxemia- wean supplemental O2 to 2L as tolerated 4. fever- resolved 5. possible aspiration- swallow study, medications in apple sauce until otherwise noted- today for study 6. PT to evaluate and treat; nursing to assist patient with ambulation TID 7. coagulopathy- hold coumadin today
[2017-01-11] MEDS: Doxycycline 100 MG Tab PO SCH ×2 (09:45→21:12)
[2017-01-11] MEDS: Simvastatin 20 MG Tab PO SCH (21:12)
[2017-01-11] MEDS: Acetaminophen 325 MG Tab PO PRN (21:13)
[2017-01-12] MEDS: Albuterol/Ipratropium 3.0-0.5 MG/3 ML Neb Soln NEB SCH ×2 (05:57→10:43)
[2017-01-12] MEDS: Timolol Maleate 0.5% Ophth Soln 15 ML Bottle EYEBOTH SCH (06:14)
[2017-01-12 07:54] LABS: CHLORIDE,CL 102 mmol/L (98-115); SODIUM,NA 144 mmol/L (136-145)
[2017-01-12 08:17] VITALS: BP 125/61
[2017-01-12] MEDS: Lutein/Minerals/Vitamins A, C & E Tab PO SCH (08:19)
[2017-01-12] MEDS: Multivitamins with Minerals/Iron/Folic Acid/Lycopene Tab PO SCH (08:19)
[2017-01-12] MEDS: Cetirizine 10 MG Tab PO SCH (08:20)
[2017-01-12] MEDS: Docusate Sodium 100 MG Cap PO SCH (08:21)
[2017-01-12] MEDS: Furosemide 40 MG Tab PO SCH (08:22)
[2017-01-12] MEDS: Polyethylene Glycol 3350 Powder 17 GM Packet PO SCH (08:23)
[2017-01-12] MEDS ORDERED: Furosemide 40 MG/4 ML VIAL IVPUSH ONE (10:44)
--- NOTE | 2017-01-12 14:53 | PCM.DCSUM1 ---
Discharge Summary - Hospital Course Free Text/Narrative:: Chana is being discharged today from inpatient stay from 01/06/17 - 01/12/17. She was admitted from 01/04/17 - 01/06/17 with hypoxia and LEONARDO infiltrate. She was treated with IV rocephin/vancomycin and duonebs a 4 hours as well as lasix IV 20 mg x 2 doses due to mild CHF exacerbation. She was discharged on omnicef 300 mg PO BID but returned to the ER that same evening with worsening SOB. There was some concern about aspiration as she had stated she had a choking episode at the nursing when she had been there. Sputum cultures from her initial stay grew out Enterobacter cloacae which was largely sensitive to antibiotics. She was started on doxycycline 100 mg PO BID and will be discharged on this for an additional 7 days. She was noted to have a supratherapeutic INR due to antibiotics, 4.8 yesterday and 4.6 today. Will hold her warfarin and recheck INR on 01/15/17. CXR was repeated this morning which did not show an infiltrate any longer but was suggestive of CHF, stable from her CXR on 01/08/17. She was given an additional 20 mg of lasix IV prior to discharge. She was not feeling SOB. She had been up ambulating without difficulty. She had a very minimal cough that was no longer productive. She did have a swallow study which did indicate dysphagia. She will be discharged on a regular diet with thickened liquids taken in small single sips with controlled breathing. She also needs to remain upright for 30 minutes and meds are to be given with puree/pudding. She does not want her coffee thickened and this exception was made. She remains a DNR/DNI. She will be discharged with nebs q 6 hours. I asked her if she wanted q 6 while awake and she preferred them to be scheduled q 6. - Discharge Data Discharge Date: 01/12/17 Discharge Disposition: DC/Tfer to SNF 03 Condition: Good - Discharge Diagnosis/Problem(s) (1) Supratherapeutic INR SNOMED Code(s): 518706826, 814556387 ICD Code: R79.1 - ABNORMAL COAGULATION PROFILE Status: Acute Current Visit: Yes (2) Pneumonia SNOMED Code(s): 133522678 ICD Code: J18.9 - PNEUMONIA, UNSPECIFIED ORGANISM Status: Acute Current Visit: No Qualifiers: Aspiration pneumonia type: unspecified Laterality: left Lung location: upper lobe of lung (3) Congestive heart failure SNOMED Code(s): 78489679 ICD Code: I50.9 - HEART FAILURE, UNSPECIFIED Status: Chronic Current Visit: No - Patient Summary/Data Consults: Consultations 01/09/17 12:08 PT Evaluation and Treatment [CONS] Routine - Patient Instructions Diet: Regular Diet as Tolerated Diet, Other: Thickened liquids except coffee. Meds with puree/pudding. Feeding Instructions: Upright for 30 minutes after eating. Activity: As Tolerated Other/Special Instructions: HOLD warfarin until 01/15/17. Please get INR on 01/15 then will get further instructions about warfarin dosing. - Discharge Plan Prescriptions/Med Rec: Albuterol/Ipratropium [DuoNeb 3.0-0.5 MG/3 ML] 3 ml NEB Q6HRRT #100 neb Doxycycline [Vibramycin] 100 mg PO Q12H #14 cap Home Medications: Home Meds Docusate Sodium [Colace] 100 mg PO DAILY 11/20/14 [History] Lutein/Minerals/Vit A,C & E [Ocuvite] 1 tab PO BID 11/20/14 [History] Multivitamin [Daily Vitamin] 1 each PO DAILY 11/20/14 [History] Nitroglycerin [Nitrostat] 0.4 mg SL ASDIRECTED PRN 11/20/14 [History] Simvastatin 20 mg PO BEDTIME 11/20/14 [History] Warfarin Sodium 2 mg PO SUTUTHSA@1800 11/20/14 [History] Furosemide [Lasix] 40 mg PO BID 11/04/15 [History] Aspirin [Adult Low Dose Aspirin EC] 81 mg PO DAILY 04/13/16 [History] Timolol Maleate 1 drop EYEBOTH DAILY 04/13/16 [History] Acetaminophen [Tylenol] 650 mg PO Q6H PRN 11/30/16 [History] Calcium Carbonate [Tums] 1,000 mg PO Q6H PRN 11/30/16 [History] Polyethylene Glycol 3350 [MiraLAX] 1 pkt PO DAILY 11/30/16 [History] Warfarin [Coumadin] 1 mg PO MOWEFR@1800 11/30/16 [History] Cetirizine [ZyrTEC] 10 mg PO DAILY 01/05/17 [History] Dextromethorphan/guaiFENesin [Robitussin DM] 5 ml PO Q12H PRN 01/05/17 [History] Albuterol/Ipratropium [DuoNeb 3.0-0.5 MG/3 ML] 3 ml NEB Q6HRRT #100 neb [Rx] Doxycycline [Vibramycin] 100 mg PO Q12H #14 cap 01/12/17 [Rx] - Discharge Summary/Plan Comment DC Time >30 min.: Yes - General Info Date of Service: 01/12/17 Admission Dx/Problem (Free Text: 1. pneumonia 2. hypoxia 3. coagulopathy 4. possible aspiration 5. fever - Review of Systems Systems Review Comment: Patient feeling markedly improved today, desires to return to NH. No longer SOB , no longer with productive cough. - Patient Data Vitals - Most Recent: Last Vital Signs Temp 97.1 F 01/12/17 07:00 Pulse 72 01/12/17 10:50 Resp 16 01/12/17 07:00 BP 125/61 01/12/17 07:00 Pulse Ox 99 01/12/17 10:50 Weight - Most Recent: 120 lb 12.8 oz I&O - Last 24 hours: Intake & Output 01/11/17 01/12/17 01/12/17 22:59 06:59 14:59 Intake Total 300 0 1200 Output Total 150 350 Balance 300 -150 850 Lab Results - Last 24 hrs: Laboratory Results - last 24 hr 01/12/17 01/12/17 01/12/17 Range/Units 07:10 07:10 07:10 WBC 4.7 L (5.0-10.0) 10^3/uL RBC 2.88 L (3.80-5.50) 10^6/uL Hgb 9.4 L (12.0-16.0) g/dL Hct 28.0 L (37.0-47.0) % MCV 97.5 H (82.0-92.0) fL MCH 32.6 H (27.0-31.0) pg MCHC 33.5 (32.0-36.0) g/dL RDW 15.0 H (11.5-14.5) % Plt Count 247 (150-300) 10^3/uL MPV 7.0 L (7.4-10.4) fL Neut % (Auto) 44.7 L (50.0-70.0) % Lymph % (Auto) 25.2 (20.0-40.0) % Mccreary % (Auto) 15.8 H (2.0-8.0) % Eos % (Auto) 12.6 H (1.0-3.0) % Baso % (Auto) 1.7 H (0.0-1.0) % Neut # 2.1 L (2.5-7.0) 10^3/uL Lymph # 1.2 (1.0-4.0) 10^3/uL Mccreary # 0.7 (0.1-0.8) 10^3/uL Eos # 0.6 H (0.1-0.3) 10^3/uL Baso # 0.1 (0.0-0.1) 10^3/uL PT 49.6 H (8.9-11.4) SEC INR 4.6 H* (0.9-1.1) APTT 52.6 H* (20.8-31.2) SEC Sodium 144 (136-145) mmol/L Potassium 3.3 (3.3-5.3) mmol/L Chloride 102 (98-115) mmol/L Carbon Dioxide 38.9 H (21.0-32.0) mmol/L BUN 13 (6-25) mg/dL Creatinine 0.63 (0.51-1.17) mg/dL Est Cr Clr Drug Dosing 49.76 mL/min Estimated GFR (MDRD) > 60 mL/min Glucose 81 (70-110) mg/dL Calcium 8.4 L (8.7-10.3) mg/dL Med Orders - Current: Current Medications Acetaminophen (Tylenol) 650 mg PO Q4H PRN PRN Reason: Pain (Mild 1-3)/fever Last Admin: 01/11/17 21:13 Dose: 650 mg Albuterol/Ipratropium (Duoneb 3.0-0.5 Mg/3 Ml) 3 ml NEB Q6HRRT [facility] Last Admin: 01/12/17 10:43 Dose: 3 ml Calcium Carbonate/Glycine (Tums) 1,000 mg PO Q6H PRN PRN Reason: Heartburn Cetirizine HCl (Zyrtec) 10 mg PO DAILY [facility] Last Admin: 01/12/17 08:20 Dose: 10 mg Docusate Sodium (Colace) 100 mg PO DAILY [facility] Last Admin: 01/12/17 08:21 Dose: 100 mg Doxycycline Hyclate (Vibramycin) 100 mg PO Q12H [facility] Last Admin: 01/12/17 08:21 Dose: 100 mg Furosemide (Lasix) 40 mg PO BIDDIURETIC [facility] Last Admin: 01/12/17 08:22 Dose: 40 mg Guaifenesin/Phenylephrine HCl (Robitussin Dm) 5 ml PO Q12H PRN PRN Reason: Cough Last Admin: 01/09/17 10:58 Dose: 5 ml Multivitamins/Minerals (Centrum) 1 tab PO DAILY [facility] Last Admin: 01/12/17 08:19 Dose: 1 tab Multivitamins/Minerals (Ocuvite) 1 each PO BID [facility] Last Admin: 01/12/17 08:19 Dose: 1 each Nitroglycerin (Nitrostat) 0.4 mg SL ASDIRECTED PRN PRN Reason: Chest Pain Polyethylene Glycol (Miralax) 17 gm PO DAILY [facility] Last Admin: 01/12/17 08:23 Dose: Not Given Simvastatin (Zocor) 20 mg PO BEDTIME [facility] Last Admin: 01/11/17 21:12 Dose: 20 mg Sodium Chloride (Syrex Flush) 5 ml FLUSH Q8H PRN PRN Reason: Keep Vein Open Last Admin: 01/11/17 06:03 Dose: 5 ml Timolol Maleate (Timoptic 0.5% Ophth Soln) 0 ml EYEBOTH DAILY@0700 [facility] Last Admin: 01/12/17 06:14 Dose: 1 drop Warfarin Sodium (Coumadin) 1 mg PO MOWEFR@1800 [facility] Last Admin: 01/10/17 18:20 Dose: 1 mg Warfarin Sodium (Coumadin) 2 mg PO SUTUTHSA@1800 [facility] Last Admin: 01/09/17 17:00 Dose: 2 mg Discontinued Medications Acetaminophen (Tylenol Extra Strength) 1,000 mg PO ONETIME ONE Stop: 01/06/17 20:48 Last Admin: 01/06/17 21:13 Dose: 1,000 mg Acetaminophen (Tylenol) 650 mg PO Q6H PRN PRN Reason: Pain Albuterol/Ipratropium (Duoneb 3.0-0.5 Mg/3 Ml) 3 ml NEB Q6HRRT PRN PRN Reason: Shortness of Breath Last Admin: 01/06/17 21:15 Dose: 3 ml Albuterol/Ipratropium (Duoneb 3.0-0.5 Mg/3 Ml) 3 ml NEB Q4HRRT [facility] Last Admin: 01/09/17 16:10 Dose: Not Given Ceftriaxone Sodium (Rocephin) 1 gm IVPUSH Q24H [facility] Last Admin: 01/10/17 20:08 Dose: 1 gm Doxycycline Monohydrate (Vibramycin) 100 mg PO Q12H [facility] Stop: 01/11/17 23:00 Last Admin: 01/11/17 21:12 Dose: 100 mg Furosemide (Lasix) 20 mg IVPUSH DAILY ONE Stop: 01/07/17 08:20 Last Admin: 01/07/17 09:59 Dose: 20 mg Furosemide (Lasix) 20 mg IVPUSH NOW ONE Stop: 01/08/17 10:16 Last Admin: 01/08/17 10:30 Dose: 20 mg Furosemide (Lasix) 20 mg IVPUSH NOW ONE Stop: 01/12/17 10:45 Last Admin: 01/12/17 13:18 Dose: 20 mg Vancomycin HCl 1 gm/ Sodium (Chloride) 250 mls @ 167 mls/hr IV Q24H [facility] Last Admin: 01/07/17 22:17 Dose: 167 mls/hr Sodium Chloride (Normal Saline) 500 mls @ 500 mls/hr IV ONETIME ONE Stop: 01/07/17 03:44 Last Admin: 01/07/17 05:11 Dose: Not Given Non-Formulary Medication (Timolol Maleate) 1 drop EYEBOTH DAILY [facility] Last Admin: 01/07/17 00:29 Dose: Not Given Timolol Gel 0.5% Oph (Own Med) 0 each EYEBOTH DAILY@0700 [facility] Last Admin: 01/07/17 14:00 Dose: Not Given Simvastatin (Zocor) 20 mg PO BEDTIME [facility] Simvastatin (Zocor) 20 mg PO BEDTIME [facility] Vancomycin HCl (Pharmacy To Dose - Vancomycin) 1 dose .XX ASDIRECTED [facility] - Exam Quality Assessment: Reports: supplemental oxygen General: Reports: alert, oriented, cooperative, no acute distress Lungs: Reports: Crackles (Up to apices bilaterally.) Cardiovascular: Reports: irregular rhythm Abdomen: Reports: bowel sounds present *Q Meaningful Use (DIS) - VTE *Q VTE Criteria *Q: - Stroke *Q Stroke Criteria *Q: - AMI *Q AMI Criteria *Q:
== END 2017-01-12 14:55 | DRG 179 ==
LOC: KA.MS 20:34
PROVIDERS: ADMIT Physician Assistant Medical; ATTEND Physician Assistant Medical
DX: J69.0 Pneumonitis due to inhalation of food and vomit (principal); I50.9 Heart failure, unspecified; R79.1 Abnormal coagulation profile; R09.02 Hypoxemia; R50.9 Fever, unspecified
CPT/HCPCS: 36415; 71010; 74230; 80048; 80202; 83880; 85025; 85610; 85730; 92526-GN; 92610-GN; 92611-GN; 94640; 97110-GP; 97161-GP; A9270-GY; J0696; J1940; J3370; J7050

== ENCOUNTER 2017-02-13 11:53 | Emergency (ER) | payer MEDICARE, OTHER, MEDICAID ==
[2017-02-13 12:15] VITALS: BP 121/49
[2017-02-13] MEDS ORDERED: Lidocaine 2% with EPINEPHrine 1:200,000 20 ML SDV ONE (12:26)
[2017-02-13] MEDS ORDERED: Bacitracin/Neomycin/Polymyxin B Oint 0.9 GM U/D Packet TOP ONE (12:45)
[2017-02-13] MEDS ORDERED: Bacitracin/Neomycin/Polymyxin B Oint 0.9 GM U/D Packet ONE (12:53)
--- NOTE | 2017-02-13 13:01 | EDM.PDOC ---
ED HPI HEAD INJURY - General Chief Complaint: Head Injury Stated Complaint: facial laceration Time Seen by Provider: 02/13/17 12:20 Source of Information: Reports: Patient History Limitations: Reports: No limitations - History of Present Illness INITIAL COMMENTS - FREE TEXT/NARRATIVE: PT STATES SHE TRIPPED ON O2 TUBING AND FELL TO FLOOR JUST [employer]. STRUCK HEAD ON COUNTER. DENIES LOC, NECK PAIN, ANY OTHER INJURY, CP, SOB, BELTRAN, DIZZINESS, OR N/ V. Symptom Onset Date: 02/13/17 Timing/Duration: Reports: Hour(s): Location: Reports: frontal, face Quality: Reports: ache Severity: mild Place of Occurrence: home Improves with: none Worsens with: none Context: Reports: fall Associated Symptoms: Reports: no other symptoms. Denies: nausea/vomiting, loss of consciousness, dizziness, dazed, confused - Related Data Allergies/ADRs: Allergies Allergy/AdvReac Type Severity Reaction Status Date / Time hydrocodone Allergy Severe Nausea and Verified 02/13/17 12:07 Vomiting levofloxacin [From Levaquin] Allergy Rash Verified 02/13/17 12:07 morphine Allergy Nausea and Verified 02/13/17 12:07 Vomiting Home Meds: Home Meds Docusate Sodium [Colace] 100 mg PO DAILY 11/20/14 [History] Lutein/Minerals/Vit A,C & E [Ocuvite] 1 tab PO BID 11/20/14 [History] Multivitamin [Daily Vitamin] 1 each PO DAILY 11/20/14 [History] Nitroglycerin [Nitrostat] 0.4 mg SL ASDIRECTED PRN 11/20/14 [History] Simvastatin 20 mg PO BEDTIME 11/20/14 [History] Furosemide [Lasix] 40 mg PO BID 11/04/15 [History] Aspirin [Adult Low Dose Aspirin EC] 81 mg PO DAILY 04/13/16 [History] Timolol Maleate 1 drop EYEBOTH DAILY 04/13/16 [History] Acetaminophen [Tylenol] 650 mg PO Q6H PRN 11/30/16 [History] Calcium Carbonate [Tums] 1,000 mg PO Q6H PRN 11/30/16 [History] Polyethylene Glycol 3350 [MiraLAX] 1 pkt PO DAILY 11/30/16 [History] Cetirizine [ZyrTEC] 10 mg PO DAILY 01/05/17 [History] Dextromethorphan/guaiFENesin [Robitussin DM] 5 ml PO Q12H PRN 01/05/17 [History] Albuterol/Ipratropium [DuoNeb 3.0-0.5 MG/3 ML] 3 ml NEB Q6HRRT #100 neb [Rx] Past Medical History HEENT History: Reports: Glaucoma, Hard of hearing, Other (see below) 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 Cardiovascular History: Reports: Heart Failure, Pacemaker, SOB on exertion, Stents Respiratory History: Reports: COPD, SOB, Other (see below) Other Respiratory History: home 02 Gastrointestinal History: Reports: GERD Genitourinary History: Reports: None Musculoskeletal History: Reports: Arthritis, Gout Neurological History: Reports: Head trauma Psychiatric History: Reports: Anxiety - Infectious Disease History Infectious Disease History: Reports: Chicken pox, Measles, Mumps, Pertussis ( whooping cough), Rubella - Past Surgical History Head Surgeries/Procedures: Reports: None HEENT Surgical History: Reports: None Cardiovascular Surgical History: Reports: Coronary artery stent, Pacer Respiratory Surgical History: Reports: None GI Surgical History: Reports: Appendectomy, Cholecystectomy Female Surgical History: Reports: Hysterectomy Neurological Surgical History: Reports: None Musculoskeletal Surgical History: Reports: None Social & Family History - Family History Family Medical History: Noncontributory - Tobacco Use Smoking Status *Q: Never Smoker Second Hand Smoke Exposure: No - Caffeine Use Caffeine Use: Reports: Coffee - Alcohol Use Days Per Week of Alcohol Use: 0 - Recreational Drug Use Recreational Drug Use: No - Living Situation & Occupation Living situation: Reports: Occupation: retired ED ROS GENERAL - Review of Systems Review Of Systems: ROS reveals no pertinent complaints other than HPI. Constitutional: Reports: no symptoms HEENT: Reports: No symptoms Respiratory: Reports: No Symptoms Cardiovascular: Reports: No symptoms Endocrine: Reports: no symptoms GI/Abdominal: Reports: No symptoms : Reports: no symptoms Musculoskeletal: Reports: no symptoms Skin: Reports: wound (LACERATION TO FOREHEAD) Neurological: Reports: No Symptoms Psychiatric: Reports: No symptoms Hematologic/Lymphatic: Reports: no symptoms Immunologic: Reports: no symptoms ED EXAM, HEAD INJURY - Physical Exam Exam: See Below Exam Limited By: No limitations General Appearance: alert, WD/WN, no apparent distress Head: facial lacerations (8CM LINEAR LACERATION ). No: Wilburn's Sign (-------) , sinus tenderness, raccoon eyes Nexus Criteria: No: posterior, midline cervical tenderness, evidence of intoxication, altered level of consciousness, focal neurological deficit, painful distracting injuries Ears: normal external exam, normal canal Nose: normal inspection, no blood Throat/Mouth: Normal inspection, Normal oropharynx, No airway compromise Neck: non-tender, full range of motion, normal alignment, normal inspection Respiratory: no respiratory distress Back Exam: normal inspection, full range of motion Extremities: no evidence of injury Neurologic: no motor/sensory deficits, alert, normal mood/affect, oriented x 3 Skin: Normal color, Warm/dry - [place] Coma Score [place] Total: 15 ED LACERATION/WOUND & ELYSIA PROC - Laceration/Wound Repair Forehead Lac/wound length in cm: 8 Appearance: subcutaneous Distal NVT: neuro & vascular intact Anesthetic type: local Local anesthesia - Lidocaine (Xylocaine): 1% with epi Local anesthetic volume: 3cc Skin prep: providone-iodine (betadine) Suture size: 4-0 Suture type: nylon, interrupted Suture size: 4-0 Repaired with: vicryl Course - Vital Signs Last Recorded V/S: Last Vital Signs Temp 98.9 F 02/13/17 12:09 Pulse 80 02/13/17 12:09 Resp 16 02/13/17 12:09 BP 121/49 L 02/13/17 12:09 Pulse Ox 96 02/13/17 12:09 - Orders/Labs/Meds Meds: Medications Discontinued Medications Generic Name Dose Route Start Last Admin Trade Name Pham PRN Reason Stop Dose Admin Lidocaine/Epinephrine Confirm 02/13/17 12:26 Xylocaine-Mpf 2%-Epi 1:200,000 Administered 02/13/17 12:27 Dose 20 ml .ROUTE .STK-MED ONE - Re-Assessments/Exams Free Text/Narrative Re-Assessment/Exam: 02/13/17 13:06 PT AFEBRILE, NONTOXIC APPEARING, VSS, TOLERATED PROCEDURE WELL. FAMILY AT BEDSIDE Departure - Departure Time of Disposition: 13:07 Disposition: Home, Self-Care 01 Condition: good Clinical Impression: Forehead laceration Instructions: Head Injury, Adult, [id number], Facial or Scalp Contusion, Easy -to-Read, Sutured Wound Care, [id number], Stitches, Kevin, or Adhesive Wound Closure, [id number] Forms: ED Department Discharge Additional Instructions: FOLLOW UP AT CLINIC IN 10 DAYS FOR SUTURE REMOVAL - Assessment/Plan Assessment:: FOREHEAD LACERATION REPAIR Plan: FOLLOW UP WITH PCP IN 10 DAYS FOR SUTURE REMOVAL
== END 2017-02-13 13:15 | disposition home or self-care (01) ==
LOC: KA.ED 11:53
DX: S01.81XA Laceration without foreign body of other part of head, initial encounter (principal); I50.9 Heart failure, unspecified; J44.9 Chronic obstructive pulmonary disease, unspecified; K21.9 Gastro-esophageal reflux disease without esophagitis; M19.90 Unspecified osteoarthritis, unspecified site; F41.9 Anxiety disorder, unspecified; Z79.899 Other long term (current) drug therapy; Z88.5 Allergy status to narcotic agent; Z88.1 Allergy status to other antibiotic agents; Z79.82 Long term (current) use of aspirin; Z90.49 Acquired absence of other specified parts of digestive tract; Z90.710 Acquired absence of both cervix and uterus; W01.0XXA Fall on same level from slipping, tripping and stumbling without subsequent striking against object, initial encounter
CPT/HCPCS: 12004; 99282; 99284

== ENCOUNTER 2017-12-02 10:00 | Emergency (ER) | payer MEDICARE, OTHER, MEDICAID ==
[2017-12-02 10:26] VITALS: BP 134/64
--- NOTE | 2017-12-02 11:02 | EDM.PDOC ---
ED HPI GENERAL MEDICAL PROBLEM - General Chief Complaint: General Stated Complaint: SHORTNESS OF BREATH Time Seen by Provider: 12/02/17 10:44 Source of Information: Reports: Patient History Limitations: Reports: No Limitations - History of Present Illness INITIAL COMMENTS - FREE TEXT/NARRATIVE: Patient presents with a lengthy episode this morning of hypoxia and a productive cough for about a week. She finished up a course of Z-pack 9 days ago and felt that it improved her cough for awhile. At 0700 today her O2 sats were in the mid 70's to 80's. Pt is always on oxygen via [place]. The [facility] staff increased her oxygen to 6 liters but the best sats were 84%. She doesn't want to be hospitalized and she is DNR but family arrived at [facility] to see her and brought her in to ER. By the time she arrived in ER sats were 100%. The oxygen has gradually been decreased and she is maintaining 98% on 4 liters. She denies any chest pain or dyspnea. Her PCP had been called from [facility] with the report of decreased sats and an additional dose of Lasix 40 mg was given there earlier this morning. Patient had a mild episode of nosebleed last night and blew out a clot this morning. 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 PROFESSIONAL: Reports: Oxygen, Other (see below) Other 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 PROFESSIONAL: lasix - Related Data Allergies Allergy/AdvReac Type Severity Reaction Status Date / Time hydrocodone Allergy Severe Nausea and Verified 12/02/17 10:30 Vomiting levofloxacin [From Levaquin] Allergy Rash Verified 12/02/17 10:30 oxycodone Allergy Nausea Verified 12/02/17 10:30 Home Meds: Home Meds Docusate Sodium [Colace] 100 mg PO DAILY 11/20/14 [History] Lutein/Minerals/Vit A,C & E [Ocuvite] 1 tab PO BID 11/20/14 [History] Multivitamin [Daily Vitamin] 1 each PO DAILY 11/20/14 [History] Nitroglycerin [Nitrostat] 0.4 mg SL ASDIRECTED PRN 11/20/14 [History] Simvastatin 10 mg PO BEDTIME 11/20/14 [History] Furosemide [Lasix] 40 mg PO BID 11/04/15 [History] Aspirin [Adult Low Dose Aspirin EC] 81 mg PO DAILY 04/13/16 [History] Timolol Maleate 1 drop EYEBOTH DAILY 04/13/16 [History] Acetaminophen [Tylenol] 650 mg PO Q6H PRN 11/30/16 [History] Calcium Carbonate [Tums] 1,000 mg PO Q6H PRN 11/30/16 [History] Polyethylene Glycol 3350 [MiraLAX] 1 pkt PO DAILY 11/30/16 [History] 0.9 % Sodium Chloride [Nasal Mist] 1 spray NS DAILY PRN 12/02/17 [History] Acetaminophen 650 mg PO DAILY 12/02/17 [History] Albuterol/Ipratropium [DuoNeb 3.0-0.5 MG/3 ML] 3 ml NEB TID 12/02/17 [History] Sennosides/Docusate Sodium [Senna S Tablet] 1 each PO DAILY 12/02/17 [History] Past Medical History HEENT History: Reports: Glaucoma, Hard of Hearing, Other (See Below) 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 Cardiovascular History: Reports: Heart Failure, Pacemaker, SOB on Exertion, Stents Respiratory History: Reports: COPD, SOB, Other (See Below) Other Respiratory History: home 02 Gastrointestinal History: Reports: GERD Genitourinary History: Reports: None Musculoskeletal History: Reports: Arthritis, Gout Neurological History: Reports: Head Trauma Psychiatric History: Reports: Anxiety - Infectious Disease History Infectious Disease History: Reports: Chicken Pox, Measles, Mumps, Pertussis ( Whooping Cough), Rubella - Past Surgical History Head Surgeries/Procedures: Reports: None Cardiovascular Surgical History: Reports: Coronary Artery Stent, Pacer GI Surgical History: Reports: Appendectomy, Cholecystectomy Female Surgical History: Reports: Hysterectomy Musculoskeletal Surgical History: Reports: None Social & Family History - Family History Family Medical History: Noncontributory - Tobacco Use Smoking Status *Q: Never Smoker Second Hand Smoke Exposure: No - Caffeine Use Caffeine Use: Reports: Coffee - Alcohol Use Days Per Week of Alcohol Use: 0 - Recreational Drug Use Recreational Drug Use: No - Living Situation & Occupation Living situation: Reports: Occupation: Retired ED ROS GENERAL - Review of Systems Review Of Systems: See Below Constitutional: Denies: Fever, Chills, Malaise, Weakness HEENT: Denies: Throat Pain, Vision Change Respiratory: Reports: Cough, Sputum. Denies: Shortness of Breath Cardiovascular: Reports: Edema (controlled well with TEDS). Denies: Chest Pain , Lightheadedness, Syncope GI/Abdominal: Reports: Constipation. Denies: Abdominal Pain, Nausea, Vomiting : Denies: Discharge, Dysuria, Flank Pain, Frequency Musculoskeletal: Reports: No Symptoms Skin: Denies: Cyanosis, Jaundice, Mottled, Pallor, Diaphoresis Neurological: Denies: Confusion, Dizziness, Headache, Seizure, Syncope, Trouble Speaking Psychiatric: Denies: Agitation, Anxiety, Confusion ED EXAM, GENERAL - Physical Exam Exam: See Below Exam Limited By: No Limitations General Appearance: Alert, WD/WN, No Apparent Distress Eye Exam: Bilateral Eye: EOMI, Normal Inspection, PERRL Ears: Normal External Exam, Hearing Grossly Normal Nose: Normal Inspection, No Blood (there is a clot occluding left nostril) Throat/Mouth: Normal Inspection, Normal Lips, Normal Voice, No Airway Compromise Head: Atraumatic, Normocephalic Neck: Normal Inspection, Supple, Non-Tender, Full Range of Motion. No: Carotid Bruit Respiratory/Chest: No Respiratory Distress, No Accessory Muscle Use, Crackles ( profuse throughout bilat lung lewis). No: Stridor Cardiovascular: Regular Rate, Rhythm, No Edema, No Murmur Peripheral Pulses: 2+: Carotid (L), Carotid (R), Radial (L), Radial (R) GI/Abdominal: Normal Bowel Sounds, Soft, No Organomegaly, No Distention, Tender (suprapubic) Back Exam: CVA Tenderness (L). No: CVA Tenderness (R) Extremities: Normal Inspection, No Pedal Edema Neurological: Alert, Oriented, Normal Cognition, No Motor/Sensory Deficits Psychiatric: Normal Affect, Normal Mood Skin Exam: Warm, Dry, Intact, Normal Color, No Rash Course - Vital Signs Last Recorded V/S: Last Vital Signs Temp 97.7 F 12/02/17 10:05 Pulse 84 12/02/17 10:05 Resp 16 12/02/17 10:05 BP 134/64 12/02/17 10:05 Pulse Ox 95 12/02/17 10:05 - Orders/Labs/Meds Orders: Active Orders 24 hr Category Date Time Status Chest 2V [CR] Stat Exams 12/02/17 10:26 Ordered Labs: Laboratory Tests 01/28/18 01/28/18 01/28/18 Range/Units 10:40 10:40 10:40 WBC 7.1 (5.0-10.0) 10^3/uL RBC 3.19 L (3.80-5.50) 10^6/uL Hgb 10.3 L (12.0-16.0) g/dL Hct 32.3 L (37.0-47.0) % MCV 101.2 H (82.0-92.0) fL MCH 32.4 H (27.0-31.0) pg MCHC 32.0 (32.0-36.0) g/dL RDW 16.1 H (11.5-14.5) % Plt Count 200 (150-300) 10^3/uL MPV 6.3 L (7.4-10.4) fL Add Manual Diff Yes Neutrophils % (Manual) 71 H (50-70) % Lymphocytes % (Manual) 17 L (20-40) % Monocytes % (Manual) 4 (2-8) % Eosinophils % (Manual) 8 H (1-3) % Basophils % (Manual) 0 (0-1) % Sodium 140 (136-145) mmol/L Potassium 3.5 (3.3-5.3) mmol/L Chloride 100 (98-115) mmol/L Carbon Dioxide 34.8 H (21.0-32.0) mmol/L BUN 15 (6-25) mg/dL Creatinine 0.70 (0.51-1.17) mg/dL Est Cr Clr Drug Dosing 48.53 mL/min Estimated GFR (MDRD) > 60 mL/min Glucose 130 H (70-110) mg/dL Calcium 8.4 L (8.7-10.3) mg/dL B-Natriuretic Peptide 553 H (0-100) pg/mL Specimen Type Urine Color (YELLOW) Urine Appearance (CLEAR) Urine pH (5.0-9.0) Ur Specific [place] (1.005-1.030) Urine Protein (NEGATIVE) mg/dL Urine Glucose (UA) (NEGATIVE) mg/dL Urine Ketones (NEGATIVE) mg/dL Urine Occult Blood (NEGATIVE) Urine Nitrite (NEGATIVE) Urine Bilirubin (NEGATIVE) Urine Urobilinogen (0.2-1.0) E.U./dL Ur Leukocyte Esterase (NEGATIVE) Urine RBC /HPF Urine WBC /HPF Ur Epithelial Cells /LPF Urine Bacteria (NONE TO FEW) /HPF Hyaline Casts (NEGATIVE) /LPF Urine Mucus (NEGATIVE) /LPF 12/02/17 Range/Units 11:20 WBC (5.0-10.0) 10^3/uL RBC (3.80-5.50) 10^6/uL Hgb (12.0-16.0) g/dL Hct (37.0-47.0) % MCV (82.0-92.0) fL MCH (27.0-31.0) pg MCHC (32.0-36.0) g/dL RDW (11.5-14.5) % Plt Count (150-300) 10^3/uL MPV (7.4-10.4) fL Add Manual Diff Neutrophils % (Manual) (50-70) % Lymphocytes % (Manual) (20-40) % Monocytes % (Manual) (2-8) % Eosinophils % (Manual) (1-3) % Basophils % (Manual) (0-1) % Sodium (136-145) mmol/L Potassium (3.3-5.3) mmol/L Chloride (98-115) mmol/L Carbon Dioxide (21.0-32.0) mmol/L BUN (6-25) mg/dL Creatinine (0.51-1.17) mg/dL Est Cr Clr Drug Dosing mL/min Estimated GFR (MDRD) mL/min Glucose (70-110) mg/dL Calcium (8.7-10.3) mg/dL B-Natriuretic Peptide (0-100) pg/mL Specimen Type Urinvoid Urine Color Yellow (YELLOW) Urine Appearance Clear (CLEAR) Urine pH 7.0 (5.0-9.0) Ur Specific [place] 1.015 (1.005-1.030) Urine Protein Negative (NEGATIVE) mg/dL Urine Glucose (UA) Negative (NEGATIVE) mg/dL Urine Ketones Negative (NEGATIVE) mg/dL Urine Occult Blood Trace-intact H (NEGATIVE) Urine Nitrite Negative (NEGATIVE) Urine Bilirubin Negative (NEGATIVE) Urine Urobilinogen 0.2 (0.2-1.0) E.U./dL Ur Leukocyte Esterase Negative (NEGATIVE) Urine RBC 10-20 H /HPF Urine WBC 5-10 H /HPF Ur Epithelial Cells Moderate H /LPF Urine Bacteria Occasional (NONE TO FEW) /HPF Hyaline Casts Moderate H (NEGATIVE) /LPF Urine Mucus Moderate H (NEGATIVE) /LPF - Re-Assessments/Exams Free Text/Narrative Re-Assessment/Exam: 12/02/17 11:32 O2 sats on 4 liters nc started dropping to low to mid 80's and it looks/sounds like she isn't getting any oxygen in left nostril so we switched to mask with 4 liters and sats quickly went up to 98%. CXR shows "probable mild edema superimposed upon underlying fibrosis". WBC is normal. BNP is 553 which is lower than any checks in nearly 3 months and good for her per PCP. This is appearing to be hypoxia secondary to pulmonary edema and occluded left nostril rather than recurrent pneumonia. With two episodes of nosebleeds in last 24 hours, I am reluctant to remove the clot right now but this could be done in 1- 2 days if not clearing on its own. Her nasal mucosa would probably benefit from humidified oxygen or something else to keep it moist with the 24/7 oxygen she is on; this may prevent some nosebleeds. 12/02/17 12:03 Discussed findings and treatment plan with Dr. Canseco and with patient and her family. We confirmed with the NH that humidified oxygen is available for patient. Patient has been stable throughout ER course. Discussed findings and treatment plan with patient and her family. Departure - Departure Time of Disposition: 11:54 Disposition: DC/Tfer to SNF 03 Condition: Good Clinical Impression: Hypoxia Pulmonary edema Qualifiers: Chronicity: chronic Qualified Code(s): J81.1 - Chronic pulmonary edema - Discharge Information Referrals: Azul Boggs MD [Primary Care Provider] - Forms: ED Department Discharge Additional Instructions: 1. Will probably need to use oxygen via face mask until the left nostril clears up. There is a large clot occluding it currently which I don't want to remove now since it would likely cause re-bleeding. In a day or two patient can be encouraged to blow it out if still present and at that time she can be switched from face mask to humidified oxygen via nasal cannula. 2. Maintain oxygen saturations in the 90-95% range and may need to make adjustment with face mask to allow some oxygen to escape since flow can't be reduced lower than 4 liters with the mask. 3. Continue the medications as ordered by Dr. Azul Canseco. - My Orders Last 24 Hours: My Active Orders 12/02/17 10:26 Chest 2V [CR] Stat - Assessment/Plan Last 24 Hours: My Active Orders 12/02/17 10:26 Chest 2V [CR] Stat
[2017-12-02 11:06] LABS: CHLORIDE,CL 100 mmol/L (98-115); SODIUM,NA 140 mmol/L (136-145)
== END 2017-12-02 12:30 ==
LOC: KA.ED 10:00
DX: J81.1 Chronic pulmonary edema (principal); R09.02 Hypoxemia; I50.9 Heart failure, unspecified; J44.9 Chronic obstructive pulmonary disease, unspecified; Z88.8 Allergy status to other drugs, medicaments and biological substances; Z88.6 Allergy status to analgesic agent; Z79.899 Other long term (current) drug therapy; Z79.82 Long term (current) use of aspirin
CPT/HCPCS: 36415; 71046; 80048; 81001; 83880; 85025; 99285

== ENCOUNTER 2018-02-13 14:41 | Inpatient (IN) | payer MEDICARE, OTHER, MEDICAID ==
--- NOTE | 2018-02-13 15:37 | EDM.PDOC ---
ED HPI GENERAL MEDICAL PROBLEM - General Chief Complaint: Chest Pain Stated Complaint: Chest pain, shortness of breath Time Seen by Provider: 02/13/18 15:13 Source of Information: Reports: Patient, Family History Limitations: Reports: No Limitations - History of Present Illness INITIAL COMMENTS - FREE TEXT/NARRATIVE: Patient is an 87-year-old female who presents to the emergency department this afternoon from nursing facility. Patient states shortly after lunch today, she became short of breath and felt a tightness in her chest. She was seated and at rest during this episode. Pain described as heaviness, continuous and mediastinal. Patient was given one nitroglycerin and symptoms did subside. Patient states she also felt nauseous at this time but has since resolved. Patient denies fever, abdominal pain, bowel changes, headache, or change in medication. 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 (Patient given one nitroglycerin at nursing facility, and symptoms improved.) - Related Data Allergies Allergy/AdvReac Type Severity Reaction Status Date / Time hydrocodone Allergy Severe Nausea and Verified 02/13/18 15:00 Vomiting levofloxacin [From Levaquin] Allergy Rash Verified 02/13/18 15:00 oxycodone Allergy Nausea Verified 02/13/18 15:00 Home Meds: Home Meds Docusate Sodium [Colace] 100 mg PO DAILY 11/20/14 [History] Lutein/Minerals/Vit A,C & E [Ocuvite] 1 tab PO BID 11/20/14 [History] Multivitamin [Daily Vitamin] 1 each PO DAILY 11/20/14 [History] Nitroglycerin [Nitrostat] 0.4 mg SL ASDIRECTED PRN 11/20/14 [History] Simvastatin 10 mg PO BEDTIME 11/20/14 [History] Furosemide [Lasix] 40 mg PO TID@08,12,16 11/04/15 [History] Aspirin [Adult Low Dose Aspirin EC] 81 mg PO DAILY 04/13/16 [History] Timolol Maleate 1 drop EYEBOTH DAILY 04/13/16 [History] Acetaminophen [Tylenol] 650 mg PO Q6H PRN 11/30/16 [History] Calcium Carbonate [Tums] 1,000 mg PO Q6H PRN 11/30/16 [History] Polyethylene Glycol 3350 [MiraLAX] 1 pkt PO DAILY 11/30/16 [History] 0.9 % Sodium Chloride [Nasal Mist] 1 spray NS DAILY PRN 12/02/17 [History] Acetaminophen 650 mg PO BEDTIME 12/02/17 [History] Albuterol/Ipratropium [DuoNeb 3.0-0.5 MG/3 ML] 3 ml NEB TID 12/02/17 [History] Sennosides/Docusate Sodium [Senna S Tablet] 1 each PO DAILY 12/02/17 [History] Ascorbic Acid 500 mg PO DAILY 02/13/18 [History] Oxyquinoline/Emollient [Bag [place] Oint] 1 applic TOP BID PRN 02/13/18 [History] Past Medical History HEENT History: Reports: Glaucoma, Hard of Hearing, Other (See Below) 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 Cardiovascular History: Reports: Heart Failure, Pacemaker, SOB on Exertion, Stents Respiratory History: Reports: COPD, SOB, Other (See Below) Other Respiratory History: home 02 Gastrointestinal History: Reports: GERD Genitourinary History: Reports: None Musculoskeletal History: Reports: Arthritis, Gout Neurological History: Reports: Head Trauma Psychiatric History: Reports: Anxiety - Infectious Disease History Infectious Disease History: Reports: Chicken Pox, Measles, Mumps, Pertussis ( Whooping Cough), Rubella - Past Surgical History Head Surgeries/Procedures: Reports: None HEENT Surgical History: Reports: Cataract Surgery, Tonsillectomy Cardiovascular Surgical History: Reports: Coronary Artery Stent, Pacer Respiratory Surgical History: Reports: None GI Surgical History: Reports: Appendectomy, Cholecystectomy Female Surgical History: Reports: Hysterectomy Neurological Surgical History: Reports: None Musculoskeletal Surgical History: Reports: None Social & Family History - Family History Family Medical History: Noncontributory - Tobacco Use Smoking Status *Q: Never Smoker Second Hand Smoke Exposure: No - Caffeine Use Caffeine Use: Reports: Coffee - Alcohol Use Days Per Week of Alcohol Use: 0 - Recreational Drug Use Recreational Drug Use: No - Living Situation & Occupation Living situation: Reports: Occupation: Retired ED ROS GENERAL - Review of Systems Review Of Systems: ROS reveals no pertinent complaints other than HPI. Constitutional: Reports: No Symptoms HEENT: Reports: No Symptoms Respiratory: Reports: Shortness of Breath Cardiovascular: Reports: Chest Pain Endocrine: Reports: No Symptoms GI/Abdominal: Reports: Nausea. Denies: Vomiting : Reports: No Symptoms Musculoskeletal: Reports: No Symptoms Skin: Reports: No Symptoms Neurological: Reports: No Symptoms Psychiatric: Reports: No Symptoms Hematologic/Lymphatic: Reports: No Symptoms Immunologic: Reports: No Symptoms ED EXAM, GENERAL - Physical Exam Exam: See Below Exam Limited By: No Limitations General Appearance: Alert, WD/WN, No Apparent Distress Eye Exam: Bilateral Eye: Normal Inspection Nose: Normal Inspection, Normal Mucosa, No Blood Throat/Mouth: Normal Inspection, Normal Oropharynx, No Airway Compromise Head: Atraumatic, Normocephalic Neck: Normal Inspection, Supple Respiratory/Chest: No Respiratory Distress, Rales (Throughout) Cardiovascular: Regular Rate, Rhythm, No Murmur GI/Abdominal: Normal Bowel Sounds, Soft, Non-Tender, No Organomegaly, No Distention, No Abnormal Bruit, No Mass Back Exam: Normal Inspection. No: CVA Tenderness (L), CVA Tenderness (R) Extremities: Normal Inspection, No Pedal Edema Neurological: Alert, Oriented, Normal Cognition Psychiatric: Normal Affect, Normal Mood Skin Exam: Warm, Dry, Intact, Normal Color, No Rash Lymphatic: No Adenopathy EKG INTERPRETATION EKG Date: 02/13/18 Time: 15:00 Rate (Beats/Min): 71 Comparison: No Change EKG Interpretation Comments: Electronic ventricular pacemaker Course - Vital Signs Last Recorded V/S: Last Vital Signs Temp 97.7 F 02/13/18 14:54 Pulse 73 02/13/18 14:54 Resp 20 02/13/18 14:54 BP 131/62 02/13/18 14:54 Pulse Ox 98 02/13/18 14:54 - Orders/Labs/Meds Orders: Active Orders 24 hr Category Date Time Status EKG Documentation Completion [RC] ASDIRECTED Care 02/13/18 15:08 Active Chest 1V Frontal [CR] Stat Exams 02/13/18 15:05 Ordered B-TYPE NATRIURETIC PEPTIDE,BNP [CHEM] Stat Lab 02/13/18 15:05 Ordered COMPREHENSIVE METABOLIC PN,CMP [CHEM] Stat Lab 02/13/18 15:05 Ordered TROPONIN I [CHEM] Stat Lab 02/13/18 15:05 Ordered EKG 12 Lead [EK] Routine Ther 02/13/18 14:50 Ordered Labs: Laboratory Tests 02/13/18 Range/Units 14:50 WBC 6.3 (5.0-10.0) 10^3/uL RBC 3.17 L (3.80-5.50) 10^6/uL Hgb 10.8 L (12.0-16.0) g/dL Hct 33.6 L (37.0-47.0) % MCV 105.9 H D (82.0-92.0) fL MCH 34.1 H (27.0-31.0) pg MCHC 32.2 (32.0-36.0) g/dL RDW 13.7 (11.5-14.5) % Plt Count 196 (150-300) 10^3/uL MPV 7.0 L (7.4-10.4) fL Neut % (Auto) 57.9 (50.0-70.0) % Lymph % (Auto) 22.9 (20.0-40.0) % [place] % (Auto) 13.0 H (2.0-8.0) % Eos % (Auto) 5.0 H (1.0-3.0) % Baso % (Auto) 1.2 H (0.0-1.0) % Neut # (Auto) 3.7 (2.5-7.0) 10^3/uL Lymph # (Auto) 1.4 (1.0-4.0) 10^3/uL [place] # (Auto) 0.8 (0.1-0.8) 10^3/uL Eos # (Auto) 0.3 (0.1-0.3) 10^3/uL Baso # (Auto) 0.1 (0.0-0.1) 10^3/uL - Radiology Interpretation Free Text/Narrative:: Interstitial pulmonary parenchymal fibrotic changes on chest x-ray - Re-Assessments/Exams Free Text/Narrative Re-Assessment/Exam: 02/13/18 15:58 Patient afebrile, nontoxic appearing, vital signs stable. Patient denies chest pain or shortness of breath at this time. Family is at bedside. Patient will be admitted to Dr. Jiménez's service, and case discussed with Joyce Sorto. Departure - Departure Time of Disposition: 16:19 Disposition: Admitted As Inpatient 66 Condition: Fair Clinical Impression: Atypical chest pain, Afib, Atrial fibrillation Congestive heart failure Qualifiers: Heart failure type: other Qualified Code(s): I50.9 - Heart failure, unspecified Referrals: Azul Boggs MD [Primary Care Provider] - - My Orders Last 24 Hours: My Active Orders 02/13/18 14:50 EKG 12 Lead [EK] Routine 02/13/18 15:05 Chest 1V Frontal [CR] Stat B-TYPE NATRIURETIC PEPTIDE,BNP [CHEM] Stat COMPREHENSIVE METABOLIC PN,CMP [CHEM] Stat TROPONIN I [CHEM] Stat 02/13/18 15:08 EKG Documentation Completion [RC] ASDIRECTED - Assessment/Plan Last 24 Hours: My Active Orders 02/13/18 14:50 EKG 12 Lead [EK] Routine 02/13/18 15:05 Chest 1V Frontal [CR] Stat B-TYPE NATRIURETIC PEPTIDE,BNP [CHEM] Stat COMPREHENSIVE METABOLIC PN,CMP [CHEM] Stat TROPONIN I [CHEM] Stat 02/13/18 15:08 EKG Documentation Completion [RC] ASDIRECTED Assessment:: Chest pain, CHF, atrial fibrillation Plan: Admit inpatient to Dr. Jiménez'bea mcmillan
[2018-02-13] MEDS ORDERED: Furosemide 40 MG/4 ML VIAL IVPUSH ONE (15:53)
[2018-02-13] MEDS ORDERED: Sodium Chloride 0.9% 5 ML Syringe FLUSH PRN (16:12)
[2018-02-13] MEDS ORDERED: Calcium Carbonate 500 MG Tab.Chew PO PRN (16:16)
[2018-02-13 17:26] LABS: SODIUM,NA 143 mmol/L (136-145)
[2018-02-13 19:14] LABS: CHLORIDE,CL 101 mmol/L (98-115)
[2018-02-13] MEDS: Albuterol/Ipratropium 3.0-0.5 MG/3 ML Neb Soln NEB SCH (20:59)
[2018-02-13] MEDS ORDERED: Simvastatin 20 MG Tab PO SCH (21:00)
[2018-02-13] MEDS: Simvastatin 10 MG Tab PO SCH (21:10)
[2018-02-13] MEDS: Acetaminophen 325 MG Tab PO SCH (21:10)
[2018-02-14 07:57] LABS: CHLORIDE,CL 102 mmol/L (98-115); SODIUM,NA 146 mmol/L (136-145)
[2018-02-14] MEDS ORDERED: Furosemide 40 MG Tab PO SCH (08:00)
[2018-02-14] MEDS: Albuterol/Ipratropium 3.0-0.5 MG/3 ML Neb Soln NEB SCH ×3 (08:39→20:17)
[2018-02-14] MEDS: Aspirin 81 MG Tab.EC PO SCH (08:40)
[2018-02-14] MEDS: Polyethylene Glycol 3350 Powder 17 GM Packet PO SCH (08:40)
[2018-02-14] MEDS: Docusate Sodium 100 MG Cap PO SCH (08:40)
[2018-02-14] MEDS ORDERED: TIMOLOL MALEATE EYEBOTH SCH (09:00)
[2018-02-14] MEDS ORDERED: [UNRECOGNIZED DRUG - OTHER] EYEBOTH SCH (09:15)
[2018-02-14] MEDS: [UNRECOGNIZED DRUG - OTHER] EYEBOTH SCH (11:10)
[2018-02-14] MEDS: Furosemide 40 MG/4 ML VIAL IVPUSH SCH ×2 (12:20→16:27)
[2018-02-14] MEDS ORDERED: Furosemide 40 MG/4 ML VIAL IVPUSH SCH (14:00)
[2018-02-14] MEDS: Simvastatin 10 MG Tab PO SCH (20:16)
[2018-02-14] MEDS: Acetaminophen 325 MG Tab PO SCH (20:16)
[2018-02-15 07:20] VITALS: BP 119/63
[2018-02-15] MEDS: Furosemide 40 MG/4 ML VIAL IVPUSH SCH (07:54)
[2018-02-15] MEDS: Aspirin 81 MG Tab.EC PO SCH (08:00)
[2018-02-15] MEDS: [UNRECOGNIZED DRUG - OTHER] EYEBOTH SCH (08:00)
[2018-02-15] MEDS: Docusate Sodium 100 MG Cap PO SCH (08:00)
[2018-02-15] MEDS: Polyethylene Glycol 3350 Powder 17 GM Packet PO SCH (08:02)
[2018-02-15 08:19] LABS: CHLORIDE,CL 100 mmol/L (98-115); SODIUM,NA 147 mmol/L (136-145)
--- NOTE | 2018-02-15 08:24 | PN ---
02/14/2018PATIENT NAME: MEENAKSHI HONEYCUTT This is an 87-year-old female who presented to the emergency room yesterday with chest pain and shortness of breath. She was admitted for observation. Her initial troponin was negative. She had a BNP drawn, which was found to be 439. White count was normal. Admission hemoglobin was 10.8. UA was negative. Labs were repeated this morning, which showed again a normal white blood cell count. She is slightly anemic with a hemoglobin of 11.0. Sodium was elevated at 146 today with a normal range being 135 to 145. Potassium is normal at 3.8. BUN and creatinine are normal at 20 and 0.69 respectively. Her GFR is greater than 60. Her troponin I this morning was negative as well at 0.04. The patient complained of approximately 4-minute episode last evening of visual blurring. At that time, a CAT scan was contemplated, however, the family decided to wait for further decision regarding further diagnostic testing. This morning, the patient states that her family does want to have a CAT scan performed. She is a DNR. She had rales in her lungs upon admission. She was admitted with a diagnosis of chest pain, CHF as well as atrial fibrillation. She is taking Lasix 40 mg orally three times a day. Lungs did have findings consistent with congestive heart failure. PHYSICAL EXAMINATION: VITAL SIGNS: Temp is 97.7, pulse is 72, respirations 16, blood pressure 116/60, O2 saturation is 97% on 4 L of oxygen. Her weight this morning was 112 pounds 14 ounces. This is down 0.5 pounds from yesterday. SKIN: Warm and dry to touch. CARDIAC: Reveals S1, S2 to be normal. Rate and rhythm are regular. No murmur, click, or gallop is auscultated. LUNGS: Diffuse rales in all lobes with the left lung worse than the right. No rhonchi. No inspiratory or expiratory wheezing. ABDOMEN: Soft, nontender. Bowel sounds present in all four quadrants. There is trace pedal edema. NEUROLOGICAL: She is alert and oriented to time, place, person and self. Cranial nerves 2 through 12 are intact. Sensory, motor, and cerebellar function are within normal limits with limited testing. IMPRESSION: 1. Chest pain with negative troponin I x2. Myocardial infarction unlikely. 2. Congestive heart failure, improving. We did change oral Lasix 40 mg t.i.d. to intravenous route. 3. Brief episode of visual blurring last evening. CT scan will be ordered for the patient. We will repeat lab work in the morning to include CBC, CMP as well as a 3rd troponin I. If she is improved, she may be discharged back to the detention. This will be at the discretion of Dr. Azul Jiménez. ADDENDUM: The results of this CT of the head without contrast showed mild generalized atrophy, which is stable relative to prior study of March 09, 2016. Stable mild to moderate multifocal white matter hypoattenuation, nonspecific. Possible chronic small vessel ischemia. No mass effect or midline shift. No acute hemorrhage or extra-axial fluid collection. No acute territorial infarct is identified. Orbits and paranasal sinuses are unremarkable. The final impression, there were no acute findings. The report of the CAT scan was communicated to the patient. /[id number]/MODL
[2018-02-15] MEDS: Albuterol/Ipratropium 3.0-0.5 MG/3 ML Neb Soln NEB SCH (08:51)
--- NOTE | 2018-02-15 08:52 | PCM.DCSUM1 ---
Discharge Summary - Hospital Course Free Text/Narrative:: Chana is being discharged from an inpatient stay from 02/13/18 - 02/15/18 for chest pain and mild CHF exacerbation. EKG was unchanged from previous and 3 troponins were negative. She initially presented to the ER from the [place] for a 4 minute episode of chest pain with associated nausea. CP resolved with nitroglycerin administration. She also reportedly had an episode of "fuzzy vision" and so a head CT was performed yesterday which was negative for stroke. BNP was minimally elevated at 439, which is actually stable for her. 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 No new findings from CXR done November of 2017. She is normally on lasix 40 mg PO TID and this was changed to 40 mg IV TID, really without any symptomatic improvement. Labs all stable. The family and Chana do not desire any more aggressive work-up for chest pain or other things. She will return to the [place] today with no changes in medications or care. Of note, she has macrocytic anemia, a B12 level will be drawn and if low, she will be replaced. - Discharge Data Discharge Date: 02/15/18 Discharge Disposition: DC/Tfer to SNF 03 Condition: Fair - Discharge Diagnosis/Problem(s) (1) Chest pain SNOMED Code(s): 49429349 ICD Code: R07.9 - CHEST PAIN, UNSPECIFIED Status: Acute Current Visit: Yes (2) Macrocytic anemia SNOMED Code(s): 19554323 ICD Code: D53.9 - NUTRITIONAL ANEMIA, UNSPECIFIED Status: Acute Current Visit: Yes (3) Afib, Atrial fibrillation SNOMED Code(s): 64288116 ICD Code: I48.91 - UNSPECIFIED ATRIAL FIBRILLATION Status: Chronic Current Visit: Yes (4) Congestive heart failure SNOMED Code(s): 04100191 ICD Code: I50.9 - HEART FAILURE, UNSPECIFIED Status: Chronic Current Visit: Yes Qualifiers: Heart failure type: other Qualified Code(s): I50.9 - Heart failure, unspecified - Patient Instructions Diet: Regular Diet as Tolerated Activity: As Tolerated - Discharge Plan Home Medications: Home Meds Docusate Sodium [Colace] 100 mg PO DAILY 11/20/14 [History] Lutein/Minerals/Vit A,C & E [Ocuvite] 1 tab PO BID 11/20/14 [History] Multivitamin [Daily Vitamin] 1 each PO DAILY 11/20/14 [History] Nitroglycerin [Nitrostat] 0.4 mg SL ASDIRECTED PRN 11/20/14 [History] Simvastatin 10 mg PO BEDTIME 11/20/14 [History] Furosemide [Lasix] 40 mg PO TID@08,12,16 11/04/15 [History] Aspirin [Adult Low Dose Aspirin EC] 81 mg PO DAILY 04/13/16 [History] Timolol Maleate 1 drop EYEBOTH DAILY 04/13/16 [History] Acetaminophen [Tylenol] 650 mg PO Q6H PRN 11/30/16 [History] Calcium Carbonate [Tums] 1,000 mg PO Q6H PRN 11/30/16 [History] Polyethylene Glycol 3350 [MiraLAX] 1 pkt PO DAILY 11/30/16 [History] 0.9 % Sodium Chloride [Nasal Mist] 1 spray NS DAILY PRN 12/02/17 [History] Acetaminophen 650 mg PO BEDTIME 12/02/17 [History] Albuterol/Ipratropium [DuoNeb 3.0-0.5 MG/3 ML] 3 ml NEB TID 12/02/17 [History] Sennosides/Docusate Sodium [Senna S Tablet] 1 each PO DAILY 12/02/17 [History] Ascorbic Acid 500 mg PO DAILY 02/13/18 [History] Oxyquinoline/Emollient [Bag Trinity Oint] 1 applic TOP BID PRN 02/13/18 [History] Referrals: Azul Bgogs MD [Primary Care Provider] - - Discharge Summary/Plan Comment DC Time >30 min.: No - General Info Date of Service: 02/15/18 Admission Dx/Problem (Free Text: Chest pain, mild CHF exacerbation. Subjective Update: 10 point ROS obtained, all pertinent positives listed in HPI, all other systems negative. - Patient Data Vitals - Most Recent: Last Vital Signs Temp 98.0 F 02/15/18 07:00 Pulse 79 02/15/18 07:00 Resp 18 02/15/18 07:00 BP 119/63 02/15/18 07:00 Pulse Ox 98 02/15/18 07:45 Weight - Most Recent: 113 lb 4 oz I&O - Last 24 hours: Intake & Output 02/14/18 02/15/18 02/15/18 22:59 06:59 14:59 Intake Total 240 50 Balance 240 50 Lab Results - Last 24 hrs: Laboratory Results - last 24 hr 02/14/18 02/15/18 02/15/18 Range/Units 07:20 07:25 07:25 WBC 5.2 (5.0-10.0) 10^3/uL RBC 3.26 L (3.80-5.50) 10^6/uL Hgb 11.1 L (12.0-16.0) g/dL Hct 34.3 L (37.0-47.0) % MCV 105.2 H (82.0-92.0) fL MCH 34.1 H (27.0-31.0) pg MCHC 32.4 (32.0-36.0) g/dL RDW 13.5 (11.5-14.5) % Plt Count 187 (150-300) 10^3/uL MPV 6.9 L (7.4-10.4) fL Neut % (Auto) 50.5 (50.0-70.0) % Lymph % (Auto) 28.6 (20.0-40.0) % Sutton % (Auto) 13.1 H (2.0-8.0) % Eos % (Auto) 7.0 H (1.0-3.0) % Baso % (Auto) 0.8 (0.0-1.0) % Neut # (Auto) 2.6 (2.5-7.0) 10^3/uL Lymph # (Auto) 1.5 (1.0-4.0) 10^3/uL Sutton # (Auto) 0.7 (0.1-0.8) 10^3/uL Eos # (Auto) 0.4 H (0.1-0.3) 10^3/uL Baso # (Auto) 0.0 (0.0-0.1) 10^3/uL Sodium 147 H (136-145) mmol/L Potassium 3.9 (3.3-5.3) mmol/L Chloride 100 (98-115) mmol/L Carbon Dioxide 39.8 H (21.0-32.0) mmol/L BUN 23 (6-25) mg/dL Creatinine 0.82 (0.51-1.17) mg/dL Est Cr Clr Drug Dosing 38.46 mL/min Estimated GFR (MDRD) > 60 mL/min Glucose 106 (70-110) mg/dL Calcium 8.9 (8.7-10.3) mg/dL Total Bilirubin 0.4 (0.2-1.0) mg/dL AST 27 (15-37) U/L ALT 20 (12-78) U/L Alkaline Phosphatase 107 (46-116) IU/L Troponin I 0.04 < 0.04 (0.00-0.070) ng/mL Total Protein 7.7 (6.4-8.2) g/dL Albumin 2.86 L (3.00-4.80) g/dL Med Orders - Current: Current Medications Acetaminophen (Tylenol) 650 mg PO BEDTIME [facility] Last Admin: 02/14/18 20:16 Dose: 650 mg Albuterol/Ipratropium (Duoneb 3.0-0.5 Mg/3 Ml) 3 ml NEB TID [facility] Last Admin: 02/14/18 20:17 Dose: 3 ml Aspirin (Halfprin) 81 mg PO DAILY [facility] Last Admin: 02/15/18 08:00 Dose: 81 mg Calcium Carbonate/Glycine (Tums) 1,000 mg PO Q6H PRN PRN Reason: Heartburn Docusate Sodium (Colace) 100 mg PO DAILY [facility] Last Admin: 02/15/18 08:00 Dose: 100 mg Furosemide (Lasix) 40 mg IVPUSH 0800,1200,1600 [facility] Last Admin: 02/15/18 07:54 Dose: 40 mg Timolol Maleate Gfs (Gel 0.5%) 0 each EYEBOTH DAILY [facility] Last Admin: 02/15/18 08:00 Dose: 1 each Polyethylene Glycol (Miralax) 17 gm PO DAILY [facility] Last Admin: 02/15/18 08:02 Dose: 17 gm Simvastatin (Zocor) 10 mg PO BEDTIME [facility] Last Admin: 02/14/18 20:16 Dose: 10 mg Sodium Chloride (Syrex Flush) 5 ml FLUSH Q8HR PRN PRN Reason: Keep Vein Open Discontinued Medications Furosemide (Lasix) 20 mg IVPUSH NOW ONE Stop: 02/13/18 15:54 Last Admin: 02/13/18 16:01 Dose: 20 mg Furosemide (Lasix) 40 mg PO TID@,,16 [facility] Last Admin: 02/14/18 08:40 Dose: 40 mg Furosemide (Lasix) 40 mg IVPUSH TID [facility] Non-Formulary Medication (Timolol Maleate [Timolol Maleate]) 1 drop EYEBOTH DAILY [facility] Last Admin: 02/14/18 10:47 Dose: Not Given Timolol Maleate Gfs (Gel 0.5%) 0 each EYEBOTH DAILY [facility] Simvastatin (Zocor) 10 mg PO BEDTIME [facility] - Exam Quality Assessment: Reports: Supplemental Oxygen General: Reports: Alert, Oriented, Cooperative, No Acute Distress Lungs: Reports: Crackles (Unchanged from her stable outpatient exam.) Cardiovascular: Reports: Irregular Rhythm GI/Abdominal Exam: Normal Bowel Sounds Extremities: No Pedal Edema
== END 2018-02-15 11:40 | DRG 313 ==
LOC: KA.ED 14:41 → KA.MS 16:12
PROVIDERS: ADMIT Physician Assistant Surgical; ATTEND Internal Medicine
DX: R07.9 Chest pain, unspecified (principal); D53.9 Nutritional anemia, unspecified; I48.91 Unspecified atrial fibrillation; I50.9 Heart failure, unspecified; J44.9 Chronic obstructive pulmonary disease, unspecified; K21.9 Gastro-esophageal reflux disease without esophagitis; F41.9 Anxiety disorder, unspecified; H53.8 Other visual disturbances; Z66 Do not resuscitate; Z79.899 Other long term (current) drug therapy; Z99.81 Dependence on supplemental oxygen; Z88.8 Allergy status to other drugs, medicaments and biological substances; Z95.0 Presence of cardiac pacemaker
CPT/HCPCS: 36415; 71045; 80053; 81001; 83880; 84484; 85025; 96374; 99285; J1940; 70450; 82607; 85027; 93005; 94640; A9270-GY